=== PATIENT | female | born 1960 | race Caucasian/White ===

== ENCOUNTER 2021-04-08 09:39 | Inpatient (IN) | payer OTHER ==
[~2021-04-08] VITALS: Ht 162.6 cm; Wt 82.7 kg
[~2021-04-08 09:39] MED LIST: MEPE50 PO
[2021-04-08 10:42] LABS: BASOPHILS ABSOLUTE AUTO 0.01 K/mm3 (0.00-0.23); BASOPHILS PERCENT AUTO 0 % (0-2); EOSINOPHILS PERCENT AUTO 0 % (0-6); Hematocrit 40.8 % (33.0-51.0); Hemoglobin 13.2 g/dL (11.5-16.0); IMMATURE GRAN ABSOLUTE AUTO 0.04 K/mm3 (0.00-0.10); IMMATURE GRAN PERCENT AUTO 1 % (0-1); LYMPHOCYTES ABSOLUTE AUTO 0.38 K/mm3 (0.84-5.20); LYMPHOCYTES PERCENT AUTO 5 % (21-46); MONOCYTES ABSOLUTE AUTO 0.47 K/mm3 (0.16-1.47); MONOCYTES PERCENT AUTO 6 % (4-13); Mean Corpuscular HGB 28.9 pg (26.0-34.0); Mean Corpuscular HGB Conc 32.4 g/dL (31.5-36.5); Mean Corpuscular Volume 90 fL (80-100); Mean Platelet Volume 9.6 fL (9.1-12.4); NEUTROPHILS ABSOLUTE AUTO 7.29 K/mm3 (1.96-9.15); NEUTROPHILS PERCENT AUTO 89 % (41-73); Platelet Count 224 K/mm3 (150-400); RDW Coefficient Variation 13.7 % (11.7-14.2); Red Blood Cell Count 4.56 M/mm3 (3.80-5.20); White Blood Cell Count 8.19 K/mm3 (4.00-11.30)
[2021-04-08] MEDS ORDERED: PEPCID40 MG PO (10:45)
[2021-04-08] MEDS ORDERED: HYDROCODONE CO120 ML (10:46)
[2021-04-08] MEDS ORDERED: BUSPIRONE HCL10 M4 PO (10:46)
[2021-04-08] MEDS ORDERED: ALBU3IS (10:46)
[2021-04-08] MEDS ORDERED: CYCL10 (10:46)
[2021-04-08] MEDS ORDERED: DICL75ER (10:46)
[2021-04-08] MEDS ORDERED: DIAZEPAM5 M2 (10:47)
[2021-04-08] MEDS ORDERED: OXYC10TA19 (10:47)
[2021-04-08] MEDS ORDERED: ALBU2.5V5 NEB (12:04)
[2021-04-08] MEDS ORDERED: CYCLOBENZAPRINE5 MG PO (12:05)
[2021-04-08] MEDS ORDERED: TRAZ100 PO (12:05)
[2021-04-08] MEDS ORDERED: OXYC10TA19 PO (12:06)
[2021-04-08] MEDS ORDERED: [UNRECOGNIZED DRUG - OTHER] (16:07)
--- NOTE | 2021-04-08 18:43 | NUR ---
SHIFT SUMMARY PATIENT ARRIVED FROM ED. PATIENT IS ALERT AND ORIENTED. PATIENT IS IN BED ON 15 LITERS NON REBREATHER. PATIENT IS VERY ANXIOUS AND DESATTED GOING TO THE BESIDED COMMODE. WHEN PATIENT'S SATS RECOVER SHE WILL BE GETTING A CT SCAN.
[2021-04-08 21:43] LABS: Source, Urine Catheter
[2021-04-08 21:45] LABS: Bilirubin, Urine Neg (Neg); Blood, Urine 3+ (Neg); Glucose Qualitative, Urine Neg (Neg); Ketones, Urine 1+ (Neg); Leukocyte Esterase, Urine Neg (Neg); Nitrite, Urine Neg (Neg); Protein, Urine 3+ (Neg); Urobilinogen, Urine NORM (Normal)
[2021-04-08 22:07] LABS: Appearance, Urine Clear (Clear); Color, Urine Yellow (P-Yellow)
[2021-04-08 22:08] LABS: Amorphous Light (0-Heavy); Bacteria Mod /hpf; Mucus Light (0-Heavy); Squamous Epithelial Cells Few /hpf (Few)
[2021-04-09 06:06] LABS: BASOPHILS ABSOLUTE AUTO 0.01 K/mm3 (0.00-0.23); BASOPHILS PERCENT AUTO 0 % (0-2); EOSINOPHILS PERCENT AUTO 0 % (0-6); Hemoglobin 12.4 g/dL (11.5-16.0); IMMATURE GRAN ABSOLUTE AUTO 0.11 K/mm3 (0.00-0.10); IMMATURE GRAN PERCENT AUTO 2 % (0-1); LYMPHOCYTES ABSOLUTE AUTO 0.66 K/mm3 (0.84-5.20); LYMPHOCYTES PERCENT AUTO 10 % (21-46); MONOCYTES ABSOLUTE AUTO 0.44 K/mm3 (0.16-1.47); MONOCYTES PERCENT AUTO 6 % (4-13); Mean Corpuscular HGB 29.2 pg (26.0-34.0); Mean Corpuscular HGB Conc 33.5 g/dL (31.5-36.5); Mean Corpuscular Volume 87 fL (80-100); Mean Platelet Volume 9.9 fL (9.1-12.4); NEUTROPHILS ABSOLUTE AUTO 5.63 K/mm3 (1.96-9.15); NEUTROPHILS PERCENT AUTO 82 % (41-73); Platelet Count 219 K/mm3 (150-400); RDW Coefficient Variation 13.6 % (11.7-14.2); RDW Standard Deviation 43.5 fL (35.1-46.3); Red Blood Cell Count 4.24 M/mm3 (3.80-5.20); White Blood Cell Count 6.85 K/mm3 (4.00-11.30)
[2021-04-09 06:24] LABS: Anion Gap 6 mmol/L (6-16); Blood Urea Nitrogen 15 mg/dL (8-24); Bun/Creatinine Ratio 23.7 (12.0-20.0); CO2, Blood 27 mmol/L (21-32); Calcium, Blood 6.8 mg/dL (8.5-10.1); Chloride, Blood 111 mmol/L (98-108); Creatinine, Blood 0.63 mg/dL (0.40-1.00); Glomerular Filtration Rate >60 (60-); Glucose, Blood 110 mg/dL (70-99); Sodium, Blood 144 mmol/L (136-145)
--- NOTE | 2021-04-09 16:45 | NUR ---
TRANSFER NOTE: PT WITH INCREASED O2 NEEDS, AND ANXIETY T/O DAY. HOME STEREO EQUIPMENT INSTALLER AND RT ASSISTING WITH CARE. INCREASED FROM 15L NRB AND 9L OXIMIXER TO ARIVOW AT 60L/89%FIO2 WITH NRB AT 15L. PT CONTINUED TO DESAT INTO THE LOW 80'S FREQUENTLY AND 70'S WITH ANY ACTIVITY AND INCREASING ANXIETY. MD CONSULTED AND NEW ORDERS RECIEVED. PT MEDICATED WITH FENTANYL FOR PAIN AND ATIVAN FOR ANXIETY WITH GOOD RESULTS. PT UNABLE TO TOLERATED EATING OR TALKING WITHOUT DESATS. DISCUSSED WITH RT AND MD AND NEW ORDERS REVIEVED TO TRANSFER PT TO PCU. REPORT CALLED TO KATHY LIMA AND PT TRANSFERED TO PCU 232 ACCOMPANNIED BY HOME STEREO EQUIPMENT INSTALLER, RT AND IMMIGRATION PATROL INSPECTOR.
--- NOTE | 2021-04-09 17:16 | NUR ---
Pt arrived from Medical floor, wearing 100% non rebreather, switched over to cpap at 12, fio2 50%. spo2 91 %, RR 33-43. Pt is anxious.
--- NOTE | 2021-04-09 18:46 | NUR ---
SHE WAS TRANSFERRED HERE FROM MEDICAL FLOOR. PLACED ON CPAP AT 60% NOW. IS ANX. BUT DOING WELL WITH TALKING HER DOWN. SHE TRYING TO FOCUS ON DEEP, SLOW BREATHING . TALKED TO . HE STATES HE IS AT HOME ON 12 L O2 NOW. PT IS A/O. NO NEW CONCERNS NOTED. SHE ASKED FOR WATER, GAVE, SATES DID NOT DROP WITH 1/2 MIN OFF CPAP. BED IN LOW POSITIOIN, CALL LITE IN REACH, CALLS APPROP.
--- NOTE | 2021-04-10 04:34 | NUR ---
PT IS ANXIOUS AT THE START OF SHIFT PT YELLED OUT AND PULLED OFF HER CPAP. PT KICKED, SCREAMED AND PUSHED THIS NURSE AWAY WHEN SHE TRIED TO PLACE THE CPAP BACK ON. CHARGE NURSE CAME TO HELP PT AND PT WAS ABLE TO CALM DOWN, WAS GIVEN ATIVAN TO HELP. LATER THIS NIGHT AROUND 0000 PT WAS FOUND SCREAMING IN HER ROOM AND WAS ATTEMPTING TO WALK TO THE BATHROOM, LEAVING HER CATHETER AND CPAP BEHIND. PT COULD NOT BE REDIRECTED OR REASONED WITH. IT TOOK 5 STAFF MEMBERS TO GET PT BACK INTO THE BED. PT WAS GIVEN ANOTHER DOSE OF ATIVAN WITH LITTLE EFFECT. PT WAS OFFERED THE BED BULLOCK MULTIPLE TIMES BEUCASE SHE WOULD SAY "I NEED TO POOP" BUT REFUSED TO USE THE BEDPAN, SCREAMING "LET ME GO". PT EVENTUALLY CALMED DOWN BUT WAS PUT ON BOTH TWO POINT RESTRAINTS AND A SAGE VEST. PT STILL CANNOT ANSWER ORIENTATION QUESTIONS OR FOLLOW COMMANDS. AROUND 0300 PT AGAIN BECAME VERY AGITATED AND WAS SOMEHOW ABLE TO SCOOT DOWN IN THE BED TO REACH HER HANDS TO GET OFF THE CPAP. WHEN ATTEMPTING TO PUT THE CPAP BACK ON, EDUCATING THE PT THAT HE SATURATIONS WERE IN THE 30S, PT STILL REFUSED AND STARTED TO SCRATCH AND KICK THIS NURSE. CHARGE NURSE CALLED AND 5 PEOPLE AGAIN CAME TO HELP HOLD PT DOWN WHILE TRYING TO GET THE CPAP BACK ON. CHARGE NURSE NOTIED DR MANCINI OF THE SITUATION AND SAID TO GET A DOSE OF ZYPREXA. AFTER 45 MIN OF STRUGGLING, PT BECAME MORE RESPONSIVE TO HELP AND HER BED WAS CHANGED, PT WAS PULLED UP IN BED AND AGAIN, ATTEMPTED TO OFFER THE BEDPAN WITHOUT SUCCESS. PT WAS PUT IN 4 POINT RESTRAINTS FOR HER SAFETY. CALL LIGHT IN REACH, BED IN LOWEST POSTION, BED ALARM ON AND CAMERA MONITORING ON.
--- NOTE | 2021-04-10 05:42 | NUR ---
SHIFT SUMMARY ASSUMED CARE OF PT AT 1900. PT IS ALERT BUT NOT ORIENTED, SEE PREVIOUS NOTE. HEART SOUNDS REGULAR, LUNG SOUNDS ARE DIMINISHED WITH CRACKLES ALL OVER. PT IS ON CPAP @ 50%FIO2. PT WILL DESAT INTO THE 30% WHEN SHE TAKES OFF HER MASK. PT HAD AN INCONTIENT SMEAR OF DARK STOOL. PT HAS A CLARK DRAINING WITH GRAVITY. PT PULLED AT CATHETER TWICE, ONCE TRYING TO GET OUT OF BED, A SECOND TIME WHEN WHEN SHE TRIED TO TAKE OFF HER CPAP A THIRD TIME. PT WAS NOT NOT ABLE TO TOLERATE ORAL MEDICATIONS. CALL LIGHT IN REACH, BED IN LOWEST POSTION, BED ALARM ON, CAMERA MONITORING.
--- NOTE | 2021-04-10 09:33 | NUR ---
PHYSICIAN UPDATED UPDATED ON PT'S INCREASE IN AGGITATION AND RR.SEE EMAR AND EHR
--- NOTE | 2021-04-10 13:52 | NUR ---
UPDATE PHYSICIAN AWARE PT IS HAVING LIQUID DARK STOOLS. TOLD TO CONTINUE TO MONITOR AT THIS TIME. PHYSICIAN NOTIFIED THAT PT UNABLE TO GO TO CT AT THIS TIME D/T OXYGEN REQUIRMENTS ON CPAP. IF ABLE TO TITRATE PT DOWN ON FIO2 WILL BE ABLE TO TRANSFER PT TO CT.
--- NOTE | 2021-04-10 16:03 | NUR ---
Update 04/10/21: Per chart notes, pt. agitated overnight. Restraints in place. CT canceled at this time. I believe that patient's has been updated by Dr. Colón, I will check in with him to be sure. Pt. seems likely to remain admitted over the weekend. Plan to continue to follow care and provide discharge planning/care coordination as needed. Will also update her Mike as indicated based on patient's hospital course.
--- NOTE | 2021-04-10 17:10 | NUR ---
Called patient's Mike to provide updates. Pt. was able to go in for CT. with portable equipment. Pt. no longer in restraints. Per RT they have attempted to transition pt. to NC so that she can eat. Pt. did not tolerate NC and was switched back to mask. Pt. appeared to be calm and resting comfortably in room on mask. Provided additional updates to . Requested that nursing staff provide update to patient's in the am and if any changes occur in patient's condition.
--- NOTE | 2021-04-10 18:12 | NUR ---
SHIFT SUMMARY PT ALERT TO SELF, LOCATION AND EVENT. PT VERY ANXIOUS AT TIMES AND PAINFUL. MEDICATED PER EMAR. PT HAS HIGH RR T/O SHIFT. PHYSICIAN AWARE. MEDICATED FOR ANXIETY. PT ON CPAP AT SETTINGS OF 12 AND 65% FIO2. HR STABLE. BP STABLE. PT REPORTS PAIN IN BACK. MEDICATED PER EMAR. SAGE VEST AND BILAT SOFT WRIST RESTRAINTS ORDERED D/T AGGITATION AND PULLING AT LINES. PT CALMED T/O SHIFT. FAMILY REQUESTS TO BE NOTIFIED IN AM OF PT STATUS. WILL INFORM NIGHTSHIFT RN. PT TURNED Q 2 HRS. ORAL CARE PROVIDED AND PO INTAKE OFFERED. PT REFUSING PO INTAKE AND PO MEDS. PHYSICIAN NOTIFIED. ORDERS FOR D5 1/2 NS TO RUN AT 75 ML/HR. OXYGEN SATURATION MAINTAINED ABOVE 92%. PT TRIALED AIRVO, UNABLE TO TOLERATE AT THIS TIME D/T ANXIETY. PT TRANSPORTED TO [place] DURING SHIFT WITH THIS RN, DIRECT SUPPORT SPECIALIST AND RT. NO CP OR PRESSURE REPORTED. WILL CONT TO MONITOR UNTIL REPORT GIVEN TO NIGHTSHIFT RN.
--- NOTE | 2021-04-11 07:06 | NUR ---
SHIFT SUMMARY PATIENT WAS PUT BACK ON THE RESTRIANT. SHE WAS ALSO TRYING TO WIGGLE OUT OF BED DURING THE SHIFT. CAMERA MONITORING IS STILL ON AND CALLED THE AIDE AND RN TO CHECK ON THE PATIENT. ATIVAN WAS GIVEN A COUPLE TIMES DURING THE SHIFT SEE EMAR. MULTIPLE REPOSITIONING FOR HELP THE PATIENT RELAX. PATIENT UNABLE TO TOLERATE THE BIPAP MACHING OFF TO DRINK WATER OR TAKE HER MEDS. WILL CONTINUE TO MONITOR. VITALS WERE STABLE. CALL LIGHT IN REACH AND BED IN LOW POSITION. FREQUENT CHECKS WHILE PATIENT IS ON RESTRIENTS.
--- NOTE | 2021-04-11 12:26 | NUR ---
Pt has been sleeping since administration of pain medication. SpO2 on 55% FiO2 Cpap 12 has been holding well at 92-94% while asleep, RR decreased somewhat still tachypneic over 20 /min. Dr. Colón was rounding at 1215, updated on pt's condition and episodes of anxiety which have prevented a good attempt on the AirVo instead of CPAP.
--- NOTE | 2021-04-11 12:53 | NUR ---
Pt awakened for assessment. Lung sounds without crackles and wheezes anteriorly. The pt has been wanting to have the cpap mask off. Explained to pt that we could attempt again at this time, but that if she becomes panicked, crying, panting, etc. it will drop her oxygen level and I would have to put the cpap mask back on again. She said that she thought she could handle the flow of the AirVo nasal cannula without panicking. CPAP removed, placed on AirVo 65 L and 66% FiO2. Spo2 90-91% at this time. She is lying in bed, RR 28/minute, calm and not anxious at this time.
--- NOTE | 2021-04-11 15:53 | NUR ---
Pt tolerated about 45 minute break from the CPAP mask. Switched back to CPAP from the AirVo when hypoxia was persistent.
--- NOTE | 2021-04-11 18:43 | NUR ---
1800 Pt has been sleeping all done, doesn't change her positions except when i come into the room every 2 hours to wake her up and encourage her to reposition. At this time, she was assisted to get into the prone position, which she is tolerating very well; spo2 96% still on the cpap 12 cm H2O and FiO2 55%.
--- NOTE | 2021-04-12 05:06 | NUR ---
SHIFT SUMMARY PATIENT IS RESTING COMFORTABLE IN BED. SHE WAS AGITATED AT THE START OF SHIFT ATIVAN WAS GIVEN TWICE DURING THE SHIFT. THE PATIENT WAS ABLE TO TAKE HER PO PILL. PATIENT IS CURRENTLY ON RESTRAINTS DUE TO HER TRYING TO GET OUT OF BED AND ALSO TRYING TO PULL HER MASK OFF. RN WAS ABLE TO REORIENT AND EDUCATE PATIENT ABOUT KEEPING HER MASK ON. CALL LIGHT IN REACH FREQUENT CHECKS ON PATIENT. VITALS HAVE BEEN STABLE EXCEPT FREQUENT HR DROPS TO THE 50S WHEN SLEEPING. PATIENT COMPLAINED OF PAIN SEE EMAR. WILL CONTINUE TO MONITOR.
[2021-04-12 05:10] LABS: BASOPHILS ABSOLUTE AUTO 0.02 K/mm3 (0.00-0.23); BASOPHILS PERCENT AUTO 0 % (0-2); EOSINOPHILS PERCENT AUTO 0 % (0-6); Hematocrit 33.6 % (33.0-51.0); Hemoglobin 11.3 g/dL (11.5-16.0); Mean Corpuscular HGB 29.3 pg (26.0-34.0); Mean Corpuscular HGB Conc 33.6 g/dL (31.5-36.5); Mean Corpuscular Volume 87 fL (80-100); Platelet Count 251 K/mm3 (150-400); RDW Coefficient Variation 12.9 % (11.7-14.2); RDW Standard Deviation 40.7 fL (35.1-46.3); Red Blood Cell Count 3.86 M/mm3 (3.80-5.20); White Blood Cell Count 5.64 K/mm3 (4.00-11.30)
[2021-04-12 05:23] LABS: IMMATURE GRAN ABSOLUTE AUTO 0.12 K/mm3 (0.00-0.10); IMMATURE GRAN PERCENT AUTO 2 % (0-1); LYMPHOCYTES ABSOLUTE AUTO 0.62 K/mm3 (0.84-5.20); LYMPHOCYTES PERCENT AUTO 11 % (21-46); MONOCYTES ABSOLUTE AUTO 0.34 K/mm3 (0.16-1.47); MONOCYTES PERCENT AUTO 6 % (4-13); NEUTROPHILS ABSOLUTE AUTO 4.54 K/mm3 (1.96-9.15); NEUTROPHILS PERCENT AUTO 81 % (41-73)
[2021-04-12 05:36] LABS: Alanine Aminotransfer (ALT/SGP 95 U/L (12-78); Albumin/Globulin Ratio 0.6 (0.8-1.8); Alk Phos 68 U/L (50-136); Anion Gap 3 mmol/L (6-16); Aspartate Aminotrans (AST/SGOT 37 U/L (12-37); Bilirubin, Total 0.4 mg/dL (0.1-1.0); Blood Urea Nitrogen 9 mg/dL (8-24); CO2, Blood 33 mmol/L (21-32); Calcium, Blood 6.7 mg/dL (8.5-10.1); Chloride, Blood 102 mmol/L (98-108); Globulin, Blood 3.1 g/dL (2.2-4.0); Glomerular Filtration Rate >60 (60-); Glucose, Blood 189 mg/dL (70-99); Potassium, Blood 3.3 mmol/L (3.5-5.5); Sodium, Blood 138 mmol/L (136-145); Total Protein, Blood 5.1 g/dL (6.4-8.2)
[2021-04-12 06:18] LABS: BASOPHILS PERCENT MAN 0 % (0-2); EOSINOPHILS PERCENT MAN 0 % (0-6); LYMPHOCYTES % ATYPICAL MANUAL 1 % (0-0); LYMPHOCYTES ABSOLUTE MAN 0.16 K/mm3 (0.84-5.20); LYMPHOCYTES PERCENT MAN 2 % (21-46); MONOCYTES ABSOLUTE MAN 0.11 K/mm3 (0.16-1.47); MONOCYTES PERCENT MAN 2 % (4-13); MYELOCYTE ABSOLUTE MAN 0.11 K/mm3 (0.00-0.00); MYELOCYTE PERCENT MAN 2 % (0-0); NEUTROPHILS ABSOLUTE MAN 5.24 K/mm3 (1.96-9.15); SEG NEUTROPHILS PERCENT MAN 93 % (41-73); TOTAL CELLS COUNTED 100
--- NOTE | 2021-04-12 10:27 | NUR ---
Sat pt up on side of bed, while wearing the cpap at 60% fio2. spo2 improved to 96% while sitting on side of bed. Switched to Air Vo during administration of water, which the pt was able to accomplish without coughing or difficulty. then took oral meds also without difficulty. While on AirVo the pt started to pant breathing, and even with multiple attempts to redirect her and have her breathe in through her nose with the airvo on, her spo2 dropped to 85% and she was placed back on cpap mask. She resisted at first, trying to pull the mask off. I asked her to please not take it off, because if she does she will . She stopped and has not attempted to remove it. She was repositioned back in bed, which she said she wanted to lie back down, wearing cpap. Verified with remote monitoring that her mask is visible to them, in case she attempts to pull if off again when staff is not present in the room. She appears comfortable at this time.
--- NOTE | 2021-04-12 14:35 | NUR ---
Pt is being repositioned every 2-3 hours. She simply sleeps in one position until awoken by staff. She is able to reposition with only minimal assistance. When awoken, she barely keeps her eyes open, whimpers, occasionally attempts to remove the mask. When asked if she is having pain she shakes her head "no". Following directions. spo2 90-93% on the CPAP. Given sips of water during a brief (20 second approx) break from the CPAP.
--- NOTE | 2021-04-13 05:55 | NUR ---
SHIFT SUMMARY PATIENTT IS RESTING COMFORTABLY IN BED. PATIENT IS CURRENTLY ON AIRVO 60L ON 90% FIO2. SHE IS MORE REDIRECTABLE DURING THE SHIFT. SHE DID NOT NEED RESTRAINT AT ALL DURING THE NIGHT. PATIENT IS CALMER TONIGHT. VITALS WERE STABLE DURING THE SHIFT. SHE SAT ON THE SIDE OF THE BED FOR A COUPLE MINUTES AND SHE WAS ABLE TO TAKE HER ORAL MEDICATIONS. CALL LIGHT IN REACH. WILL CONTINUE TO MONITOR.
[2021-04-13 06:08] LABS: BASOPHILS ABSOLUTE AUTO 0.01 K/mm3 (0.00-0.23); BASOPHILS PERCENT AUTO 0 % (0-2); EOSINOPHILS PERCENT AUTO 0 % (0-6); Hematocrit 34.3 % (33.0-51.0); Hemoglobin 11.8 g/dL (11.5-16.0); IMMATURE GRAN ABSOLUTE AUTO 0.13 K/mm3 (0.00-0.10); IMMATURE GRAN PERCENT AUTO 2 % (0-1); LYMPHOCYTES ABSOLUTE AUTO 0.48 K/mm3 (0.84-5.20); LYMPHOCYTES PERCENT AUTO 7 % (21-46); MONOCYTES ABSOLUTE AUTO 0.26 K/mm3 (0.16-1.47); MONOCYTES PERCENT AUTO 4 % (4-13); Mean Corpuscular HGB 29.3 pg (26.0-34.0); Mean Corpuscular HGB Conc 34.4 g/dL (31.5-36.5); Mean Corpuscular Volume 85 fL (80-100); Mean Platelet Volume 9.8 fL (9.1-12.4); NEUTROPHILS ABSOLUTE AUTO 6.31 K/mm3 (1.96-9.15); NEUTROPHILS PERCENT AUTO 88 % (41-73); Platelet Count 281 K/mm3 (150-400); RDW Coefficient Variation 12.7 % (11.7-14.2); Red Blood Cell Count 4.03 M/mm3 (3.80-5.20); White Blood Cell Count 7.19 K/mm3 (4.00-11.30)
[2021-04-13 06:27] LABS: Anion Gap 3 mmol/L (6-16); Blood Urea Nitrogen 8 mg/dL (8-24); Bun/Creatinine Ratio 14.1 (12.0-20.0); CO2, Blood 32 mmol/L (21-32); Calcium, Blood 7.3 mg/dL (8.5-10.1); Chloride, Blood 104 mmol/L (98-108); Creatinine, Blood 0.57 mg/dL (0.40-1.00); Glomerular Filtration Rate >60 (60-); Glucose, Blood 151 mg/dL (70-99); Magnesium, Blood 1.8 mg/dL (1.6-2.4); Potassium, Blood 3.5 mmol/L (3.5-5.5); Sodium, Blood 139 mmol/L (136-145)
--- NOTE | 2021-04-13 17:17 | NUR ---
PT SUMMARY: PT ON AIRVO ALL SHIFT 50L 70% FIO2 AT THIS TIME PT IS CURRENTLY IN PRONE POSITION, DESATS QUICK TO LOW 70'S WITH MINIMAL EXERTION TAKES TIME TO RECOVER WHEN TURNED UP TO 100% FIO2. PT IS ALERT AND ORIENTED GETS FORGETFUL AT TIMES. VITALS HRR SR HAD 5-10SEC EPISODES OF SVT, BP SYSTOLIC 140'S, RR INCREASES WHEN ANXIOUS, AFEBRILE. BED BATH AND ORAL CARE PROVIDED, REPOSITIONED Q2HRS. PT HAD POOR APPETITE HAD LESS THAN 20% OF HER MEALS TODAY D5 1/2NS RUNNING AT 75MLS/HR. NO OTHER ISSUES ENCOUNTERED, BED ALARM ON FOR SAFETY NO ATTEMPTS OF TRYING TO GET OUT OF BED, CALL LIGHTS WITHIN REACH WILL REPORT TO ONCOMING SHIFT
--- NOTE | 2021-04-13 23:00 | NUR ---
AT 2230 THE PATIENT THREW UP WHILE ON THE BIPAP MACHINE. PATIENT WAS ABLE TO TAKE OF THE MASK WHEN SHE VOMITTED. WE TRIED TO PRONE THE PATIENT ON HER RIGHT SIDE BUT SHE LAYED ON HER RIGHT SIDE AND WAS UNABLE TO FULLY PRONE HER AND HER SATURATIONS WENT UP WHILE SHE WAS ON HER SIDE. WILL CONTINUE TO MONITOR. STAYING OF THE BIPAP FOR NOW
[2021-04-14 03:41] LABS: BASOPHILS ABSOLUTE AUTO 0.01 K/mm3 (0.00-0.23); BASOPHILS PERCENT AUTO 0 % (0-2); EOSINOPHILS PERCENT AUTO 0 % (0-6); Hematocrit 32.1 % (33.0-51.0); IMMATURE GRAN ABSOLUTE AUTO 0.17 K/mm3 (0.00-0.10); IMMATURE GRAN PERCENT AUTO 2 % (0-1); LYMPHOCYTES ABSOLUTE AUTO 0.24 K/mm3 (0.84-5.20); LYMPHOCYTES PERCENT AUTO 3 % (21-46); MONOCYTES ABSOLUTE AUTO 0.24 K/mm3 (0.16-1.47); MONOCYTES PERCENT AUTO 3 % (4-13); Mean Corpuscular HGB Conc 34.3 g/dL (31.5-36.5); Mean Corpuscular Volume 85 fL (80-100); Mean Platelet Volume 9.7 fL (9.1-12.4); NEUTROPHILS ABSOLUTE AUTO 8.01 K/mm3 (1.96-9.15); NEUTROPHILS PERCENT AUTO 92 % (41-73); Platelet Count 269 K/mm3 (150-400); RDW Coefficient Variation 12.8 % (11.7-14.2); RDW Standard Deviation 39.4 fL (35.1-46.3); Red Blood Cell Count 3.79 M/mm3 (3.80-5.20); White Blood Cell Count 8.67 K/mm3 (4.00-11.30)
[2021-04-14 03:58] LABS: Anion Gap 3 mmol/L (6-16); Blood Urea Nitrogen 6 mg/dL (8-24); Bun/Creatinine Ratio 10.5 (12.0-20.0); CO2, Blood 33 mmol/L (21-32); Chloride, Blood 103 mmol/L (98-108); Creatinine, Blood 0.57 mg/dL (0.40-1.00); Glomerular Filtration Rate >60 (60-); Glucose, Blood 157 mg/dL (70-99); Magnesium, Blood 2.3 mg/dL (1.6-2.4); Phosphorus, Blood 1.7 mg/dL (2.5-4.9); Sodium, Blood 139 mmol/L (136-145)
--- NOTE | 2021-04-14 05:45 | NUR ---
AIRVO SETTING ARE 60L ON 90% FIO2 SAQTURATING AT 94% WITHOUT THE NONREBREATHER.
--- NOTE | 2021-04-14 06:00 | NUR ---
SHIFT SUMMARY. THE PATIENT IS RESTING COMFORTABLE IN BED. SHE IS CURRENTLY LAYING ON HER RIGHT SIDE. SHE PRONED FOR ABOUT AN HOURS THEN REAJUSTED TO HER RIGHT SIDE. SATURATIONS ARE STILL MAINTINING ABOVE 9O% AT 93% ON THE AIRVO 60L ON 90% WITHOUT THE NONREBREATHER ON. THE PATIENT HAS BEEN OFF THE BIPAP DUE TO HER THROWING UP AT 2240 LAST NIGHT. ONE DOES OF ATIVAN WAS GIVEN TO HELP CALM HER AFTER SHE THREW UP. CALL LIGHT IS IN REACH. PATIENT IS IN [place] WITH HER BED ALARM ON. HER SATURATIONS GO DOWN WHEN WE TRY TO MOVE HER BUT SHE HAS TOLERATED LAYING ON HER SIDE AND IN PRONE POSITION. WILL CONTINUE TO MONITOR. VITALS HAVE BEEN STABLE OTHERWISE HER SATURATIONS WHICH HAVE IMPORVED.
--- NOTE | 2021-04-14 14:49 | NUR ---
pt sitting up eating lunch, 60l airvo at this time. pt tolerating well. awoke confused and removing cpap. stated "i need to go to my appointment with the doctor" reoriented well to location at hospital. currently 90% with airvo on.
--- NOTE | 2021-04-14 16:05 | NUR ---
SHIFT SUMMARY COVID 19 PT REPORTS FEELING BETTER TODAY. SHE REMAINS EXTREMELY TIRED AND DENIES WANTING TO EAT. AGREEABLE TO TRYING ENSURE WITH MEALS. SOB WITH REST AND WILL DESAT WITH SOME EXERTION. REMIANS SEMI PRONE ON HER LEFT SIDE. HIGH FLOW SET TO 60L AND 90% KEEPING AIRVO IN NOSE. CLARK PATENT AND DRAINING.
--- NOTE | 2021-04-14 17:05 | NUR ---
pt placed back on bipap with rt. pt tolerating well. still prone on left side. currently 93%
--- NOTE | 2021-04-15 05:00 | NUR ---
PT TRANSFER PT TRANSFERRED FROM [facility] TO PCU 8 ICU STATUS. PT IS ON BIPAP 16/12, BUR 8, FIO2 100%. PT SLEEPING UPON ARRIVAL. WHEN PT WAKES UP, SHE IS UNABLE TO FOLLOW COMMANDS. MAKES EYE CONTACT BUT DOES NOT SQUEEZE HANDS. AFTER A FEW MINUTES, PT BECOMES MORE ALERT. SHAKES HEAD YES/NO TO ANSWER QUESTIONS AND FOLLOWS COMMANDS. PT DENIES PAIN OR DISCOMFORT. LUNGS ARE CLEAR AND DIMINISHED IN BASES. BOWEL TONES HYPOACTIVE. RADIAL AND PEDAL PULSES STRONG. PT SINUS RHYTHM ON MONITOR, HR 40S-60S. SBP 140S. CLARK IN PLACE. PT RECEIVING D5W1/2NS AT 75MLS/HR. POWERGLIDE TO R ARM. TEMP 97.1. PT CALM AND DROWSY AT THIS TIME. PT ASKS FOR WARM BLANKETS WHICH ARE PROVIDED. PT GIVEN CALL LIGHT AND EXPLAINED HOW TO USE. PT IS ON CENTRAL MONITOR CAMERA.
[2021-04-15 05:05] LABS: Base Excess Venous 12.1 mmol/L; Bicarbonate Venous 34.7 mmol/L (24.0-30.0); PCO2 Venous 40.3 mmHg (38-42); PO2 Venous 56.3 mmHg (38-42); pH Blood Venous 7.54 (7.34-7.37)
[2021-04-15 05:15] LABS: BASOPHILS ABSOLUTE AUTO 0.02 K/mm3 (0.00-0.23); BASOPHILS PERCENT AUTO 0 % (0-2); EOSINOPHILS PERCENT AUTO 0 % (0-6); Hematocrit 33.5 % (33.0-51.0); Hemoglobin 11.4 g/dL (11.5-16.0); IMMATURE GRAN ABSOLUTE AUTO 0.19 K/mm3 (0.00-0.10); IMMATURE GRAN PERCENT AUTO 2 % (0-1); LYMPHOCYTES ABSOLUTE AUTO 0.31 K/mm3 (0.84-5.20); LYMPHOCYTES PERCENT AUTO 4 % (21-46); MONOCYTES ABSOLUTE AUTO 0.15 K/mm3 (0.16-1.47); MONOCYTES PERCENT AUTO 2 % (4-13); Mean Corpuscular HGB 28.9 pg (26.0-34.0); Mean Corpuscular Volume 85 fL (80-100); Mean Platelet Volume 10.2 fL (9.1-12.4); NEUTROPHILS ABSOLUTE AUTO 7.73 K/mm3 (1.96-9.15); NEUTROPHILS PERCENT AUTO 92 % (41-73); Platelet Count 241 K/mm3 (150-400); RDW Coefficient Variation 12.7 % (11.7-14.2); RDW Standard Deviation 39.1 fL (35.1-46.3); Red Blood Cell Count 3.94 M/mm3 (3.80-5.20)
[2021-04-15 05:36] LABS: Anion Gap 3 mmol/L (6-16); Blood Urea Nitrogen 7 mg/dL (8-24); Bun/Creatinine Ratio 12.6 (12.0-20.0); CO2, Blood 32 mmol/L (21-32); Calcium, Blood 7.1 mg/dL (8.5-10.1); Chloride, Blood 105 mmol/L (98-108); Creatinine, Blood 0.55 mg/dL (0.40-1.00); Glomerular Filtration Rate >60 (60-); Glucose, Blood 180 mg/dL (70-99); Phosphorus, Blood 2.6 mg/dL (2.5-4.9); Potassium, Blood 3.3 mmol/L (3.5-5.5); Sodium, Blood 140 mmol/L (136-145)
--- NOTE | 2021-04-15 07:38 | NUR ---
SHIFT SUMMARY PT. LETHARGIC UPON ARRIVAL. PT. AOUND MED. PASS TIME DID WAKE UP WAS COMMUNICATIVE WITH STAFF, AT THE TIME ALERT AND ORIENTATED. ON CPAP AT 75% FIO2 AND 02 AT THE TIME ABOVE 89-92%. WITH ANY MOVEMENT OR REPOSITIONING PT. WOULD DESAT. RESPIRATORY THERAPY HAD TO INCREASE FIO2 T/O THE NIGHT TILL SHE REACHED 100% FIO2 TO HELP MAINTAIN TO KEEP HER O2 ABOUT 90%. DR. DURAN WAS NOTIFIED AGREED TO TRANSFER HER TO ANOTHER ROOM IN CASE OF AN EMERGANCY. SHE WAS TRANSFERED TO ROOM 8, IN CASE UPPER HIGHER CARE WAS NEEDED. PT. DOES HAVE A CLARK IN PLACE. NOTED YELLOW URINE. PT. REMAINS ON TELE MONITOR FROM SR IN THE 70'S TO SB WHEN SLEEPING. PT. REPOSITINED Q2H BUT REFUSED PRONING. WOULD GET ANXIOUS AND DID GET X1 ATIVAN DURING SHIFT. PT. GOT TRANSFERED AND GAVE REPORT TO NURSE RECEIVING PT. IN ROOM 8.
--- NOTE | 2021-04-15 08:02 | NUR ---
[place] of Care Pt is resting in bed with eyes closed. She is on a full face mask with BIPAP at 100% Fio2, her o2 sat is at 92 %. She is bradycardic at 52 BPM. Her powerglide is patent. Her palomo is in place draining dark yellow urine. Her bed alarmn is set and she is on camera for safety as per report she was aggitated on shift production associate.
--- NOTE | 2021-04-15 11:44 | NUR ---
Update 04/15/21: Day 7 of hospitalization. Per chart review, confusion has improved over the last few days. Notes of patient being lethargic at times. Bradycardic. Notes that pt. desated with any movement overnight. Transferred to PCU8 on ICU status due to risk for need of critical care. Settings: BiPAP 15, FiO2 95%. SPO2 at 92%. Dr. Decker has been providing updates to patient's Mike. I have also provided him with my contact information for updates or questions. Plan to continue to follow patient's care and assist in care coordination as needed. Continue update family as indicated.
--- NOTE | 2021-04-15 16:08 | NUR ---
Shift Summary Pt is a/o to herself and situation at times but she has been confused and drowsy, sleeping throughout the day. When she is awake she is anxious and was medicated for that as ordered. She was trialed on the on the smaller partial face mask but reported that she prefers the full face mask. She is currently on the CPAP at 100% Fio2 with sats in the 90's. She has been sinus ron. IV fluids are infusing as ordered. She has been on bedrest today. She is able to make her needs known and has her call light in reach but does need reminders to use it. She is visble on camera and bed alarm is on for safety.
--- NOTE | 2021-04-16 06:38 | NUR ---
SHIFT SUMMARY PATIENT IS A PLESANTLY CONFUSED LADY WHO IS ORIENTED X2-3, FORGETFUL, DOESNT KNOW LIMITS, BUT IS COMPLIANT WITH CARE AND FOLLOWING MOST COMMANDS. GENERALIZED WEAKNESS NOTED. FUNES. VSS. ON CPAP 90% TO START AND ABLE TO WEAN DOWN TO 75 ON THIS. STILL DESATS WITH VERY LITTLE EXERTION OR ORAL INTAKE. TRIALED AIRVO MAX SETTINGS FOR MEDS BUT DID NOT TOLERATE THIS. SO ONLY GIVING THE IMPORTANT ORAL MEDS FOR NOW. PATIENT STATES SHE IS VERY HUNGRY BUT REMAINS NPO UNTIL O2 DEMANDS DOWN. NSR/SB ON THE MONITOR. Q2H TURNS IN PLACE AND PATIENT HELPS WITH THIS. CLARK PATENT DRAINING TO GRAVITY.NO ACUTE CONCERNS AT THIS TIME. WILL CONTINUE PLAN OF CARE UNTIL REPORT GIVEN TO DK LIMA.
--- NOTE | 2021-04-16 08:28 | NUR ---
[place] of Care Pt is sleeping in bed. She is still on CPAP with the full face mask with sats currently in the low 90's. She can not tolerate being off the mask even for nutrition or PO pills so when the Dr rounds we will discuss IV nutrition. Her IV fluids are still infusing as ordered. She has her call light and the bed alarm is on for safety.
[2021-04-16 09:10] LABS: BASOPHILS ABSOLUTE AUTO 0.02 K/mm3 (0.00-0.23); BASOPHILS PERCENT AUTO 0 % (0-2); EOSINOPHILS PERCENT AUTO 0 % (0-6); Hemoglobin 11.6 g/dL (11.5-16.0); IMMATURE GRAN ABSOLUTE AUTO 0.19 K/mm3 (0.00-0.10); IMMATURE GRAN PERCENT AUTO 2 % (0-1); LYMPHOCYTES ABSOLUTE AUTO 0.22 K/mm3 (0.84-5.20); LYMPHOCYTES PERCENT AUTO 3 % (21-46); MONOCYTES ABSOLUTE AUTO 0.19 K/mm3 (0.16-1.47); MONOCYTES PERCENT AUTO 2 % (4-13); Mean Corpuscular HGB 29.4 pg (26.0-34.0); Mean Corpuscular HGB Conc 34.1 g/dL (31.5-36.5); Mean Corpuscular Volume 86 fL (80-100); Mean Platelet Volume 10.1 fL (9.1-12.4); NEUTROPHILS ABSOLUTE AUTO 8.32 K/mm3 (1.96-9.15); NEUTROPHILS PERCENT AUTO 93 % (41-73); Platelet Count 255 K/mm3 (150-400); RDW Coefficient Variation 12.9 % (11.7-14.2); RDW Standard Deviation 40.6 fL (35.1-46.3); Red Blood Cell Count 3.95 M/mm3 (3.80-5.20); White Blood Cell Count 8.94 K/mm3 (4.00-11.30)
[2021-04-16 09:29] LABS: Alanine Aminotransfer (ALT/SGP 48 U/L (12-78); Albumin, Blood 1.8 g/dL (3.4-5.0); Albumin/Globulin Ratio 0.5 (0.8-1.8); Alk Phos 86 U/L (50-136); Anion Gap 3 mmol/L (6-16); Aspartate Aminotrans (AST/SGOT 23 U/L (12-37); Bilirubin, Total 0.2 mg/dL (0.1-1.0); Blood Urea Nitrogen 8 mg/dL (8-24); CO2, Blood 33 mmol/L (21-32); Calcium, Blood 7.1 mg/dL (8.5-10.1); Chloride, Blood 104 mmol/L (98-108); Creatinine, Blood 0.57 mg/dL (0.40-1.00); Globulin, Blood 3.7 g/dL (2.2-4.0); Glomerular Filtration Rate >60 (60-); Glucose, Blood 171 mg/dL (70-99); Potassium, Blood 3.5 mmol/L (3.5-5.5); Sodium, Blood 140 mmol/L (136-145); Total Protein, Blood 5.5 g/dL (6.4-8.2)
--- NOTE | 2021-04-16 11:25 | NUR ---
Update 04/16/21: Day 8 of hospitalization. Pt. continues to require high flow O2. Settings: CPAP 50 LPM. FiO2 70%. SPO2 at 95%. Per chart review, pt. unable to tolerate being off the mask. Several attempts have been made to adjust to NC for short periods of time. Pt. unable to take PO meds. IV nutrition may be required at this point. It is difficult to anticipate needs at time of discharge for pt. currently. Plan to continue to follow patient's care and assist in care coordination as needed. Continue to provide updates to patient's as indicated.
--- NOTE | 2021-04-16 16:41 | NUR ---
Shift Summary Pt is a/o x 2-3 but is confused and forgetful. She is fatigued and weak. She is dependent on the full face mask CPAP @ 70% and can maintain her sats in the low 90's as long as she keeps the mask on. She did become anxious this afternoon and pulled off the mask and quickly desaturated. The mask was replaced and she was given meds as ordered for her anxiety. She has been napping for the afternoon. A nutrition consult was called in and clinimix has been started. The PICC nurse will be here in the morning for the ordered PICC line. Her palomo is patent with yellow output. She has been turned and re-positioned. She is able to make her needs known and has her call light in reach.
[2021-04-17 04:17] LABS: BASOPHILS ABSOLUTE AUTO 0.01 K/mm3 (0.00-0.23); BASOPHILS PERCENT AUTO 0 % (0-2); EOSINOPHILS ABSOLUTE AUTO 0.01 K/mm3 (0.00-0.68); EOSINOPHILS PERCENT AUTO 0 % (0-6); Hematocrit 32.7 % (33.0-51.0); Hemoglobin 11.1 g/dL (11.5-16.0); IMMATURE GRAN ABSOLUTE AUTO 0.32 K/mm3 (0.00-0.10); IMMATURE GRAN PERCENT AUTO 3 % (0-1); LYMPHOCYTES PERCENT AUTO 3 % (21-46); MONOCYTES ABSOLUTE AUTO 0.27 K/mm3 (0.16-1.47); MONOCYTES PERCENT AUTO 2 % (4-13); Mean Corpuscular HGB 28.8 pg (26.0-34.0); Mean Corpuscular HGB Conc 33.9 g/dL (31.5-36.5); Mean Corpuscular Volume 85 fL (80-100); NEUTROPHILS ABSOLUTE AUTO 10.44 K/mm3 (1.96-9.15); NEUTROPHILS PERCENT AUTO 92 % (41-73); Platelet Count 218 K/mm3 (150-400); RDW Coefficient Variation 12.7 % (11.7-14.2); RDW Standard Deviation 38.6 fL (35.1-46.3); Red Blood Cell Count 3.85 M/mm3 (3.80-5.20); White Blood Cell Count 11.35 K/mm3 (4.00-11.30)
[2021-04-17 04:41] LABS: Anion Gap 4 mmol/L (6-16); Blood Urea Nitrogen 10 mg/dL (8-24); Bun/Creatinine Ratio 19.2 (12.0-20.0); CO2, Blood 30 mmol/L (21-32); Calcium, Blood 6.9 mg/dL (8.5-10.1); Chloride, Blood 103 mmol/L (98-108); Creatinine, Blood 0.52 mg/dL (0.40-1.00); Glomerular Filtration Rate >60 (60-); Glucose, Blood 136 mg/dL (70-99); Potassium, Blood 3.2 mmol/L (3.5-5.5); Sodium, Blood 137 mmol/L (136-145); Triglycerides 127 mg/dL (30-160)
--- NOTE | 2021-04-17 05:51 | NUR ---
SHIFT SUMMARY PATIENT IS A CONFUSED LADY WHO ORIENTED X2-3, FORGETFUL, FOLLOWING COMMANDS, WITH GENERALIZED WEAKNESS. FUNES AND QUITE RESTLESS IN BED. DOES NOT KNOW LIMITS AND TOOK THE CPAP FACE MASK OFF SEVERAL TIMES. WITH ONE OF THESE EPISODES PATIENT DESATED TO 40'S AND WERE CONSIDERING RESTRAINT USE BUT WAS ABLE TO REORIENT HER AND USE ATIVAN INSTEAD. HIGHLY ANXIOUS R/T MASK. ALSO HAVING CHRONIC PAIN ISSUES PATIENT BEEN UNABLE TO TAKE ORAL MEDS D/T O2 DEMANDS. GOT PRN FENTANYL Q4 ORDERED PRN TO HELP WITH THIS. BACK PAIN NOW AT TOLERABLE LEVEL. VSS. NSR IN THE 60'S ON THE MONITOR. ON CPAP 80% AT THIS TIME SATING MID 90'S. DESATTING WITH ANY EXERTION AND FORGOING ORAL MEDS UNTIL O2 DEMANDS DOWN TAKES PATIENT A WHILE TO RECOVER. NOT TOLERATING AIRVO FOR EVEN SHORT PERIODS. Q2H ORAL CARE AND TURNS. CLARK PATENT DRAINING TO GRAVITY. RIGHT UPPER ARM POWERGLIDE INFILTRATED WITH PPN INFUSING. QUITE SWOLLEN. LINE REMOVED, ARM ELEVATED, AND ICE APPLIED PER PHARMACY RECS. PPN ON HOLD UNTIL PICC PLACED LATER TODAY. WILL CONTINUE PLAN OF CARE UNTIL REPORT GIVEN TO DK LIMA.
--- NOTE | 2021-04-17 08:00 | NUR ---
ASSUMED CARE OF PATIENT. DROWSY BUT AWAKENS, FOLLOWS COMMONADS. TOLERATING CPAP WELL. POWER GLIDE INFILTRATED DURING NEGATIVE SPOTTER LAST NIGHT. AWAITING PICC LINE PLACEMENT SCHEDULED THIS AM TO GIVE POTASSIUM. IF DELAYED WILL START IN PREIPHERAL LINE AT REDUCED RATE.
--- NOTE | 2021-04-17 09:30 | NUR ---
patient desating with cpap at 90%- unable to maintain greater than 88%. medicated with ativan and assisted to prone. spo2 increased to mid 90's after proning and fio2 decreased back to 85%.
--- NOTE | 2021-04-17 10:30 | NUR ---
Pt unproned self, pulled off cpap mask. spo2 decreased to 60's, dr. cramer in to see patient. after cpap replaced, fio2 increased to 100 % to maintain spo2. rr decreased from high 50's back to 40's.
--- NOTE | 2021-04-17 12:07 | NUR ---
rt called this nurse and charge nurse into bedside to witness chain-rivera breahing pattern. rt changed over to bipap 21/05 with backup rate of 12. remains on 100 % Fio2. Rt reports he informed dr. franz. called and notified Dr. Najera.
--- NOTE | 2021-04-17 13:09 | NUR ---
PATIENT TRANSFERED TO ICU. REPORT TO PHAM GREENWOOD. CALLED EARLIER TO NOTIFY OF TRANSFER.
--- NOTE | 2021-04-17 13:09 | NUR ---
Assumed care of pt upon arrival to ICU 8 from PCU 8. Pt transferred due to worsening hypoxia. Neruo: Opens eyes spontaneously. Groaning. Nods head "yes" when asked if she is having pain. Answers questions. PERRL. Moves all extremities. Musculoskeletal: Mobility limited due to hypoxia, cords, lines. Bedfast at this time. Cardiac: ST per monitor, rate 105. BP stable. Distant heart sounds. No edema present. Capillary refill less than 3 seconds BUE and BLE. Respiratory: Pt arrived wearing V60 BiPAP with full-face mask. Settings 14/10, 100% FiO2, rate 14. Pt groaning. RR 60s. SpO2 91%. Lungs clear with diminished bases. No cough noted at this time. GI: No BM for several days. Pt NPO due to BiPAP mask dependence. Previously receiving Clinimix. On hold at this time due to limited IV access. Plan for patient to receive PICC line. : Parker catheter in place, draining kendall urine. Secured to bed, patent and draining. Skin: Scattered bruising to bilateral upper extremities. Otherwise unremarkable. Psychosocial: Anxious. Spouse updated by LODGE SALES ASSOCIATE, Kathleen. Plan: Pt medicated for pain. Precedex started at 0.4 mcg/kg/hr. Animal Husbandry Professor consulted. Pt placed in bilateral wrist restraints because pt reportedly self-removed NIV mask in PCU.
[2021-04-17 13:13] LABS: PCO2 Arterial 40.3 mmHg (35-45); PO2 Arterial 61.4 mmHg (80-100); pH Blood Arterial 7.51 (7.35-7.45)
--- NOTE | 2021-04-17 14:03 | NUR ---
04/17/21- per chart review with Dr. Najera, no plan for d/c at this time. -jg
--- NOTE | 2021-04-17 19:43 | NUR ---
SUMMARY Pt initially improved after medicating pt for pain and starting precedex. FiO2 successfully titrated down to 80% and remained there for several hours. PICC line placed by Debra LIMA and TPN started today. Pt to CT for r/o PE study related to increased D Dimer and worsening hypoxia. Pt SpO2 dropped when pt had to lay flat. Did not recover when exam was over. FiO2 increased to 90%. Pt stabilized for about 30 minutes but then required FiO2 increase to 100%. Pt's sats did not recover above 90%. Pressure increased to 18/[address] Reeves. Precedex stopped because pt somnolent. Neruo: Opens eyes to verbal stimulus. Moves all extremities. Musculoskeletal: Mobility limited due to hypoxia, cords, lines. Bedfast at this time. Cardiac: SB per monitor, rate 52. BP stable. Distant heart sounds. No edema present. Capillary refill less than 3 seconds BUE and BLE. Respiratory: Pt arrived wearing V60 BiPAP with full-face mask. Settings 18/14, 100% FiO2, rate 14. RR 20s. SpO2 93%. Lungs clear with diminished bases. No cough noted at this time. GI: No BM for several days. Pt NPO due to BiPAP mask dependence. PICC line placed and pt started on TPN today. : Parker catheter in place, draining kendall urine. Secured to bed, patent and draining. Skin: Scattered bruising to bilateral upper extremities. Otherwise unremarkable. Psychosocial: Somnolent. Spouse updated by TECHNICAL SUPPORT SPECIALISTKathleen LIMA.
--- NOTE | 2021-04-17 23:01 | NUR ---
DECISION TO INTUBATE DR AUGUSTINE, DR SANCHEZ, AND RT AT BEDSIDE FOR INTUBATION. PT MEDICATED WITH 100MCG PROPOFOL BY DR AUGUSTINE AND 50MG SUCCINYLCHOLINE. INTUBATION COMPLETE AT 2232. ET TUBE IS 8.0, 25CM AT THE TEETH. VENT SETTINGS 20/330/16/90% WITH SPO2 >95%.
[2021-04-18 00:58] LABS: PCO2 Arterial 53.1 mmHg (35-45); PO2 Arterial 81.7 mmHg (80-100); pH Blood Arterial 7.38 (7.35-7.45)
[2021-04-18 04:06] LABS: BASOPHILS ABSOLUTE AUTO 0.01 K/mm3 (0.00-0.23); BASOPHILS PERCENT AUTO 0 % (0-2); EOSINOPHILS PERCENT AUTO 0 % (0-6); Hematocrit 34.7 % (33.0-51.0); Hemoglobin 11.9 g/dL (11.5-16.0); IMMATURE GRAN ABSOLUTE AUTO 0.17 K/mm3 (0.00-0.10); IMMATURE GRAN PERCENT AUTO 2 % (0-1); LYMPHOCYTES PERCENT AUTO 2 % (21-46); MONOCYTES ABSOLUTE AUTO 0.19 K/mm3 (0.16-1.47); MONOCYTES PERCENT AUTO 2 % (4-13); Mean Corpuscular HGB 30.1 pg (26.0-34.0); Mean Corpuscular HGB Conc 34.3 g/dL (31.5-36.5); Mean Corpuscular Volume 88 fL (80-100); Mean Platelet Volume 10.3 fL (9.1-12.4); NEUTROPHILS ABSOLUTE AUTO 9.34 K/mm3 (1.96-9.15); NEUTROPHILS PERCENT AUTO 94 % (41-73); Platelet Count 176 K/mm3 (150-400); RDW Coefficient Variation 12.8 % (11.7-14.2); RDW Standard Deviation 40.6 fL (35.1-46.3); Red Blood Cell Count 3.96 M/mm3 (3.80-5.20); White Blood Cell Count 9.91 K/mm3 (4.00-11.30)
[2021-04-18 04:23] LABS: Anion Gap 1 mmol/L (6-16); Blood Urea Nitrogen 15 mg/dL (8-24); Bun/Creatinine Ratio 33.1 (12.0-20.0); CO2, Blood 32 mmol/L (21-32); Chloride, Blood 105 mmol/L (98-108); Creatinine, Blood 0.45 mg/dL (0.40-1.00); Glomerular Filtration Rate >60 (60-); Glucose, Blood 269 mg/dL (70-99); Magnesium, Blood 2.1 mg/dL (1.6-2.4); Phosphorus, Blood 2.8 mg/dL (2.5-4.9); Potassium, Blood 4.1 mmol/L (3.5-5.5); Sodium, Blood 138 mmol/L (136-145)
--- NOTE | 2021-04-18 05:47 | NUR ---
SHIFT SUMMARY PT REMAINS INTUBATED. VENT SETTINGS 26/300/16/80%. OGT IN PLACE. PT RECEIVING PROPOFOL 40MCG/KG/MIN, TPN. PRECEDEX ON STANDBY. PT WAS PRONED LAST NIGHT AND IS TOLERATING WELL. PT REMAINS SINUS JENNIFER WITH HR IN 40S. BOWEL TONES REMAIN HYPOACTIVE. CLARK IN PLACE WITH SHIFT OUTPUT OF 600ML. WILL REPORT TO ONCOMING RN.
--- NOTE | 2021-04-18 10:02 | NUR ---
ASSUMED CARE REPORT FROM LULU RN AT 0700. PT INTUBATED, SEDATED AND PRONED. VENT SETTINGS AC/VC 26/300/15/70%. LUNGS CLEAR. PT BREATHING OVER VENT. COUGH REFLEX PRESENT. PT RESPONSIVE TO PAINFUL STIMULI, MOVES EXT. PROPOFOL GTT FOR SEDATION. PRECEDEX ON STANDBY D/T HR. ABD ROUND, SOFT, HYPOACTIVE BT. OGT CLAMPED. CLARK PATENT, DRAINING CLEAR YELLOW URINE TO GRAVITY. BP STABLE. SB ON MONITOR, RATE 40-50'S. WILL CONTINUE TO MONITOR.
--- NOTE | 2021-04-18 14:34 | NUR ---
TUBE FEED STARTED PER ORDERS.
--- NOTE | 2021-04-18 17:26 | NUR ---
SHIFT SUMMARY PT REMAINS INTUBATED AND SEDATED. VENT SETTINGS AC 26/300/16/60%. LUNGS CLEAR. SCANT SECRETIONS. PT PRONED UNTIL 1230. PT AGITATED c CARE. QUIET WHEN UNDISTURBED. DOES NOT FOLLOW COMMANDS. PROPOFOL GTT FOR SEDATION. CONTINUES IN SB, RATE 40-50'S. BP STABLE. TUBE FEEDS STARTED THIS SHIFT. CLARK PATENT, DRAINING TO GRAVITY. PICC TO LUE, DRESSING C/D/I. WILL CONTINUE TO MONITOR UNTIL REPORT TO ONCOMING NURSE.
[2021-04-19 03:59] LABS: BASOPHILS ABSOLUTE AUTO 0.03 K/mm3 (0.00-0.23); BASOPHILS PERCENT AUTO 0 % (0-2); EOSINOPHILS PERCENT AUTO 0 % (0-6); Hematocrit 36.1 % (33.0-51.0); Hemoglobin 12.2 g/dL (11.5-16.0); IMMATURE GRAN ABSOLUTE AUTO 0.34 K/mm3 (0.00-0.10); IMMATURE GRAN PERCENT AUTO 2 % (0-1); LYMPHOCYTES ABSOLUTE AUTO 0.31 K/mm3 (0.84-5.20); LYMPHOCYTES PERCENT AUTO 2 % (21-46); MONOCYTES ABSOLUTE AUTO 0.41 K/mm3 (0.16-1.47); MONOCYTES PERCENT AUTO 3 % (4-13); Mean Corpuscular HGB 29.3 pg (26.0-34.0); Mean Corpuscular HGB Conc 33.8 g/dL (31.5-36.5); Mean Corpuscular Volume 87 fL (80-100); Mean Platelet Volume 10.9 fL (9.1-12.4); NEUTROPHILS ABSOLUTE AUTO 14.27 K/mm3 (1.96-9.15); NEUTROPHILS PERCENT AUTO 93 % (41-73); Platelet Count 198 K/mm3 (150-400); RDW Standard Deviation 40.5 fL (35.1-46.3); Red Blood Cell Count 4.16 M/mm3 (3.80-5.20); White Blood Cell Count 15.36 K/mm3 (4.00-11.30)
[2021-04-19 04:18] LABS: Alanine Aminotransfer (ALT/SGP 56 U/L (12-78); Albumin, Blood 1.8 g/dL (3.4-5.0); Albumin/Globulin Ratio 0.5 (0.8-1.8); Alk Phos 85 U/L (50-136); Anion Gap 3 mmol/L (6-16); Aspartate Aminotrans (AST/SGOT 28 U/L (12-37); Bilirubin, Total 0.3 mg/dL (0.1-1.0); Blood Urea Nitrogen 20 mg/dL (8-24); Bun/Creatinine Ratio 35.5 (12.0-20.0); CO2, Blood 29 mmol/L (21-32); Calcium, Blood 7.6 mg/dL (8.5-10.1); Chloride, Blood 106 mmol/L (98-108); Creatinine, Blood 0.56 mg/dL (0.40-1.00); Globulin, Blood 3.9 g/dL (2.2-4.0); Glomerular Filtration Rate >60 (60-); Glucose, Blood 167 mg/dL (70-99); Magnesium, Blood 2.4 mg/dL (1.6-2.4); Phosphorus, Blood 3.2 mg/dL (2.5-4.9); Potassium, Blood 4.2 mmol/L (3.5-5.5); Sodium, Blood 138 mmol/L (136-145); Total Protein, Blood 5.7 g/dL (6.4-8.2)
--- NOTE | 2021-04-19 06:17 | NUR ---
SHIFT SUMMARY PT REMAINS INTUBATED. VENT SETTINGS 26/300/16/60%. PT PRONED LAST NIGHT AND TOLERATING WELL. PT RECEIVING PROPOFOL 45MCG/KG/MIN. PT WAKENS DURING CARE, OPENS EYES AND PURPOSEFULLY MOVES EXTREMITIES. PT DOES NOT FOLLOW VERBAL COMMANDS. HR REMAINS IN 70S-90S. PT BECOMES HYPOTENSIVE AFTER TURNING BUT RECOVERS OVER TIME. TUBE FEEDINGS CONTINUE TO INFUSE. CLARK REMAINS IN PLACE. SHIFT OUTPUT OF 200ML OF BIJAN URINE. WILL REPORT TO ONCOMING RN.
--- NOTE | 2021-04-19 07:56 | NUR ---
0715: SBAR FROM CHLOÉ LIMA. PT WITH TACHYCARDIA @122/MIN. RASS 0 WITH BILATERAL LEG MOVEMENT, ARM MOVEMENT, AND SPONTANEOUS EYE OPENING. CONCERN FOR SUBOPTIMAL SEDATION. GAVE FENTANYL 50MCG (SEE OCT). HR IMMEDIATELY DECREASED TO 86/MIN. RESTARTED THE ORDERED PRECEDEX AT 0.2MCG/KG/MIN. PROPOFOL RUNNING AT 45MCG/KG/MIN. MONITORING BP FOR RESPONSE. ALARM LIMITS REVIEWED AND EMERGENCY EQUIPMENT AT BEDSIDE.
--- NOTE | 2021-04-19 10:49 | NUR ---
PT REMAINS ON PROPFOL AND PRECEDEX IV GTT WITH GOOD TOLERANCE. HR SB 58 W/ OCCASIONAL UNIFOCAL PVC NOTED.
--- NOTE | 2021-04-19 13:03 | NUR ---
1200: PT DE-PRONED WITH TEAM, TOLERATED WELL. 1300: PT TOLERATING VENTILATOR AND ADLS VERY WELL WITH RASS -3 TO -4 ON PRECEDEX 0.1MCG/KG/HR AND PROPOFOL 45MCG/KG/MIN. DECREASED PROPOFOL TO 40MCG/KG/MIN DUE TO SBP 90MMHG WITH MAP >60. WILL MONITORING RESPONSE FOR OPTIMIZATION OF SEDATION.
--- NOTE | 2021-04-19 16:35 | NUR ---
SHIFT SUMMARY NEURO: PT AGITATED AT BEGINNING OF SHIFT BUT WELL SEDATED WITH ADDITION OF PRECEDEX CURRENTLY AT 0.1MCG/KG/HR AND PROPOFOL CURRENTLY AT 40MCG/KG/MIN. STILL WITH COUGH/GAG. RECEIVED PRN FENTANYL. RESP: VENT AC/VC 26/300/60% AT THIS TIME, SPO2 93%. CARDIAC: SINUS TACH THEN SR THEN SINUS JENNIFER WITH OCCASIONAL UNIFOCAL PVC. REC'D 1L BOLUS NS FOR SBP 83MMHG. GI: TF AT GOAL. BGL CONTROLLED. : CLARK DRAINING APPROXIMATELY 30-35ML/HR CLEAR BIJAN URINE. INTEG: NO CHANGES. PSYCH: NO FAMILY SPOKE WITH THIS RN TODAY.
--- NOTE | 2021-04-19 21:00 | NUR ---
ASSESSMENT/ASSUMED CARE PT INTUBATED AND ON [facility] VENT. LUNGS COARSE AND DECREASED. VENT SETTINGS AC/VC 26/300/16/60%. RT SUCTIONING VIA ET TUBE SMALL AMT WHITE. HEART RATE JENNIFER IN THE 40-50'S. BP STABLE. BT+HYPOACIVE. TUBE FEED VITAL HP AT 20 ML/HR, WATER 30 ML Q4HR VIA OG TUBE. CLARK CATH PATENT DRAINING BIJAN URINE. PICC LINE TO LEFT UPPER ARM WITH PROPOFOL 40 MCQ/KG/MIN, PRECEDEX 0.1 MCQ/KG/HR, AND NS AT 10 ML/HR. SITE CLEAR. IV 20G TO LEFT HAND SALINE LOCKED, SITE CLEAR. ORAL CARE DONE AND PT PRONED. BILAT SOFT WRIST RESTRAINTS ON.
[2021-04-20 04:14] LABS: BASOPHILS ABSOLUTE AUTO 0.02 K/mm3 (0.00-0.23); BASOPHILS PERCENT AUTO 0 % (0-2); EOSINOPHILS PERCENT AUTO 0 % (0-6); Hematocrit 36.5 % (33.0-51.0); Hemoglobin 12.3 g/dL (11.5-16.0); IMMATURE GRAN PERCENT AUTO 3 % (0-1); LYMPHOCYTES PERCENT AUTO 3 % (21-46); MONOCYTES ABSOLUTE AUTO 0.48 K/mm3 (0.16-1.47); MONOCYTES PERCENT AUTO 4 % (4-13); Mean Corpuscular HGB 29.1 pg (26.0-34.0); Mean Corpuscular HGB Conc 33.7 g/dL (31.5-36.5); Mean Corpuscular Volume 87 fL (80-100); Mean Platelet Volume 10.7 fL (9.1-12.4); NEUTROPHILS ABSOLUTE AUTO 11.36 K/mm3 (1.96-9.15); NEUTROPHILS PERCENT AUTO 90 % (41-73); Platelet Count 190 K/mm3 (150-400); RDW Coefficient Variation 13.2 % (11.7-14.2); Red Blood Cell Count 4.22 M/mm3 (3.80-5.20); White Blood Cell Count 12.66 K/mm3 (4.00-11.30)
[2021-04-20 04:42] LABS: Magnesium, Blood 2.1 mg/dL (1.6-2.4)
[2021-04-20 04:43] LABS: Albumin, Blood 1.8 g/dL (3.4-5.0); Anion Gap 3 mmol/L (6-16); Blood Urea Nitrogen 17 mg/dL (8-24); Bun/Creatinine Ratio 36.2 (12.0-20.0); CO2, Blood 28 mmol/L (21-32); Calcium, Blood 7.6 mg/dL (8.5-10.1); Chloride, Blood 107 mmol/L (98-108); Creatinine, Blood 0.47 mg/dL (0.40-1.00); Glomerular Filtration Rate >60 (60-); Glucose, Blood 169 mg/dL (70-99); Phosphorus, Blood 2.9 mg/dL (2.5-4.9); Potassium, Blood 4.4 mmol/L (3.5-5.5); Sodium, Blood 138 mmol/L (136-145)
[2021-04-20 04:57] LABS: BAND PERCENT MAN 1 % (0-8); BASOPHILS PERCENT MAN 0 % (0-2); EOSINOPHILS PERCENT MAN 0 % (0-6); LYMPHOCYTES ABSOLUTE MAN 0.63 K/mm3 (0.84-5.20); LYMPHOCYTES PERCENT MAN 5 % (21-46); METAMYELOCYTE PERCENT MAN 4 % (0-0); MONOCYTES ABSOLUTE MAN 0.37 K/mm3 (0.16-1.47); MONOCYTES PERCENT MAN 3 % (4-13); NEUTROPHILS ABSOLUTE MAN 11.14 K/mm3 (1.96-9.15); SEG NEUTROPHILS PERCENT MAN 87 % (41-73); TOTAL CELLS COUNTED 100
--- NOTE | 2021-04-20 06:27 | NUR ---
SHIFT SUMMARY PT CONT INTUBATED AND ON [facility] VENT. CURRENT VENT SETTINGS AC/VC 26/30/12/50%. LUNGS CONT COARSE AND DECREASED. SMALL AMT FLUID SUCTIONED VIA ET TUBE. BILAT WRIST RESTRAINTS ON. PT PRONED. TURNED AND MOVED Q2HRS. ORAL CARE Q4HRS. TUBE FEED AT GOAL. BLOOD GLUCOSED COVERED Q6HRS. PICC TO LEFT UPPER ARM, SITE CLEAR. PT SEDATED WITH PROPOFOL AND PRECEDEX. PRECEDEX AT 0.1MCQ/KG/HR DUE TO BRADYCARDIA. HEART RATE 40-50'S DURING THE NIGHT. BP STABLE. REPORT TO ON COMING NURSE
--- NOTE | 2021-04-20 08:15 | NUR ---
ASSUMED CARE: REPORT RECEIVED FROM AMANDA May RN & PARISH Roberts RN. ASSUMED CARE OF THIS PT AT APPROX 0700. ON ASSESSMENT, THE PT IS SEDATED W/ PROPOFOL & PRECEDEX. SHE AWAKENS SLIGHTLY TO VERBAL AND/OR TACILE STIMULUS, FUNES. IS NOT OPENING EYES OR FOLLOWING DIRECTIONS W/ SEDATION INFUSING. LS DIM IN BASES, VENT SETTINGS: AC/VC 26/350/12/50% W/ O2 SATS > 90%. MONITOR SHOWS SB W/ HR 40-50s, BP STABLE. OGT IN PLACE W/ TUBE FEEDS INFUSING AT GOAL RATE, LOW RESIDUALS. NO BM, BOWEL CARE PER EMAR. CLARK PATENT/ DRAINING YELLOW URINE. SKIN CONDITION OVERALL INTACT, BRUISING TO BRIDGE OF NOSE R/T PRIOR BIPAP USE. Q2H REPOSITIONING TO MAINTAIN SKIN INTEGRITY. PT CURRENTLY PRONED, WILL SUPINATE AT 1200 PER ORDERS. WILL CONTINUE TO MONITOR & UPDATE NEEDED.
--- NOTE | 2021-04-20 08:26 | NUR ---
LATE ENTRY COPIED FROM [facility] EMR - WEEKEND UPDATES Update 04/19/21: Due to worsening respiratory failure, pt. was transferred to the ICU from PCU on 04/17/21. Unfortunately, need for intubation at that time. 04/19/21 - Day 11 of hospitalization and day 2 of mechanical ventilation. Settings: PEEP 16. FiO2 50%. Tolerating prone position. Able to wean paralytic. Dr. Najera has updated patient's Mike Nix.
--- NOTE | 2021-04-20 18:56 | NUR ---
SHIFT SUMMARY: NO ACUTE CHANGES SINCE PRIOR UPDATES. PT REMAINS SEDATED W/ PROPOFOL & PRECEDEX, RESTING QUIETLY. LS DIM IN BASES, VENT SETTINGS: AC/VC 26/300/10/50% W/ O2 SATS > 90% ON AVG. MONITOR SHOWS SB-SR W/ HR 40-60s, SLIGHT HYPOTENSION THIS AFTERNOON RESOLVED W/ SEDATION TITRATION. OGT IN PLACE W/ TUBE FEEDS INFUSING AT GOAL RATE, LOW RESIDUALS. CLARK PATENT/ DRAINING YELLOW URINE. SKIN CONDITION OVERALL INTACT, Q2H REPOSITIONING TO MAINTAIN SKIN INTEGRITY. WILL CONTINUE TO MONITOR & REPORT OFF TO ONCOMING RN.
--- NOTE | 2021-04-20 20:50 | NUR ---
ASSESSMENT/ASSUMED CARE PT INTUBATED AND ON [facility] VENT. LUNGS CLEAR BUT DECREASED. VENT SETTINGS AC/VC 26/300/10/50%. SUCTIONED MODERATED AMT CREAM COLORED LIQUID VIA ET TUBE. HEART RATE REGULAR, BP LOW BUT MAP STILL IN THE 60'S. DR FERGUSON NOTIFIED. HOLDING SECOND DOSE OF LASIX AND SEDATION DECREASED. BIALT WRIST RESTRAINTS ON. BT+HYPOACTIVE. TUBE FEED VIA OG VITAL HP AT GOAL RATE 35 ML/HR, WATER 30 ML Q4HR. PICC LINE TO LEFT UPPER ARM WITH PROPOFOL AT 35 MCQ/KG/MIN, NS AT 10ML/HR AND PRECEDEX AT 0.1 MCQ/KG/HR. CLARK CATH PATENT DRAINING YELLOW URINE. REPOSITIONED AND ORAL CARE DONE.
--- NOTE | 2021-04-20 22:51 | NUR ---
SPO2 DOWN TO 86-87%, SUCTIONED MODERATED AMT CREAM COLOREED LIQUID VIA ET TUBE. INCREASED FIO2 TO 75%. RT NOTIFIED
--- NOTE | 2021-04-20 23:54 | NUR ---
HYPOTENSION DR GONZALES GIVEN UPDATE. EXPLAINED THAT PT AWAKE DUE TO DECREASING SEDATION BECAUSE OF HYPOTENSION. ALSO, THAT SECOND DOSE OF LASIX WAS HELD. RECEIVED ORDER FOR LEVOPHED IF NEEDED.
[2021-04-21 04:23] LABS: Hematocrit 37.3 % (33.0-51.0); Hemoglobin 12.7 g/dL (11.5-16.0); Mean Corpuscular HGB 29.3 pg (26.0-34.0); Mean Corpuscular Volume 86 fL (80-100); Platelet Count 220 K/mm3 (150-400); RDW Coefficient Variation 13.1 % (11.7-14.2); RDW Standard Deviation 40.2 fL (35.1-46.3); Red Blood Cell Count 4.34 M/mm3 (3.80-5.20); White Blood Cell Count 16.92 K/mm3 (4.00-11.30)
[2021-04-21 04:38] LABS: Albumin, Blood 1.9 g/dL (3.4-5.0); Anion Gap 5 mmol/L (6-16); Blood Urea Nitrogen 16 mg/dL (8-24); Bun/Creatinine Ratio 32.8 (12.0-20.0); CO2, Blood 30 mmol/L (21-32); Calcium, Blood 7.9 mg/dL (8.5-10.1); Chloride, Blood 104 mmol/L (98-108); Creatinine, Blood 0.49 mg/dL (0.40-1.00); Glomerular Filtration Rate >60 (60-); Glucose, Blood 174 mg/dL (70-99); Magnesium, Blood 2.1 mg/dL (1.6-2.4); Phosphorus, Blood 3.6 mg/dL (2.5-4.9); Potassium, Blood 3.6 mmol/L (3.5-5.5); Sodium, Blood 139 mmol/L (136-145)
[2021-04-21 05:46] LABS: BAND PERCENT MAN 4 % (0-8); BASOPHILS PERCENT MAN 0 % (0-2); EOSINOPHILS PERCENT MAN 0 % (0-6); LYMPHOCYTES PERCENT MAN 3 % (21-46); MONOCYTES ABSOLUTE MAN 0.67 K/mm3 (0.16-1.47); MONOCYTES PERCENT MAN 4 % (4-13); NEUTROPHILS ABSOLUTE MAN 15.73 K/mm3 (1.96-9.15); SEG NEUTROPHILS PERCENT MAN 89 % (41-73); TOTAL CELLS COUNTED 100
--- NOTE | 2021-04-21 06:30 | NUR ---
SHIFT SUMMARY PT CONT INTUBATED AND ON [facility] VENT. INCREASED FIO2 DURING THE NIGHT DUE TO DROP IN SPO2 INTO THE 80'S. CURRENT VENT SETTINGS AC/VC 26/300/10/75%. LUNGS CLEAR BUT DECREASED. HEART RATE REGULAR. BP LOW AND STARTED ON LEVOPHED AT 2 MCQ/MIN TO KEEP MAP GREATER THAN 65. BT+HYPOACTIVE. TUBE FEED AT GOAL VITAL HP AT 35 ML/HR, WATER 30 ML Q4 HR. MIN RESIDUAL. CLARK CATH PATENT DRAINING YELLOW URINE. PICC LINE TO LEFT UPPER ARM WITH PROPOFOL AT 45 MCQ/KG/MIN, PRECEDEX AT 0.1 MCQ/KG/MIN, NS AT 10 ML/HR, AND LEVOPHED AT 2 MCQ/MIN. BLOOD GLUCOSE Q6HR WITH SLIDING SCALE GIVEN. BILAT SOFT WRIST RESTRAINT ON. PT TURNED Q2HRS. REPORT TO ON COMING NURSE
--- NOTE | 2021-04-21 09:02 | NUR ---
Pt resting comfortably on vent at peep 10 and FiO2 75%. Parker not working again; swapped out to 16fr and 500cc came out immediately. Gave pt a bath and some fentanyl due to brow furrowing.
--- NOTE | 2021-04-21 14:35 | NUR ---
Update 04/21/21: Day 13 of hospitalization. Day 4 of mechanical ventilation. Settings: FiO2 60%. PEEP 7. SPO2 93%. Pt. is opening her eyes. In process of weaning off the vent. Feeding tube in place. GFR WNL. Attempted to contact patient's Mike Nix to provide updates. No answer at this time. Left message. Will provide updates when he is available.
--- NOTE | 2021-04-21 15:49 | NUR ---
Spoke with patient's Mike and provided updates. He expressed how grateful he is for the care that she is receiving here. I let him know that I would pass that on to her care team. Offered support and to answer any questions that he might have. None at this time. Plan to continue monitoring patients care and provide updates daily to April's .
--- NOTE | 2021-04-21 18:14 | NUR ---
Pt is still intubated and sedated and restrained. Parker replaced this morning due to malfunctioning. Levophed up and down; currently at 4 mcg. Propofol down to 30mcg. TF at goal. Vent settings down to peep of 7 and FiO2 50%.
[2021-04-22 04:21] LABS: BASOPHILS ABSOLUTE AUTO 0.02 K/mm3 (0.00-0.23); BASOPHILS PERCENT AUTO 0 % (0-2); EOSINOPHILS ABSOLUTE AUTO 0.01 K/mm3 (0.00-0.68); EOSINOPHILS PERCENT AUTO 0 % (0-6); Hematocrit 30.8 % (33.0-51.0); Hemoglobin 10.8 g/dL (11.5-16.0); IMMATURE GRAN ABSOLUTE AUTO 0.32 K/mm3 (0.00-0.10); IMMATURE GRAN PERCENT AUTO 3 % (0-1); LYMPHOCYTES ABSOLUTE AUTO 0.43 K/mm3 (0.84-5.20); LYMPHOCYTES PERCENT AUTO 4 % (21-46); MONOCYTES ABSOLUTE AUTO 0.39 K/mm3 (0.16-1.47); MONOCYTES PERCENT AUTO 3 % (4-13); Mean Corpuscular HGB 30.2 pg (26.0-34.0); Mean Corpuscular HGB Conc 35.1 g/dL (31.5-36.5); Mean Corpuscular Volume 86 fL (80-100); Mean Platelet Volume 11.4 fL (9.1-12.4); NEUTROPHILS ABSOLUTE AUTO 10.98 K/mm3 (1.96-9.15); NEUTROPHILS PERCENT AUTO 90 % (41-73); Platelet Count 181 K/mm3 (150-400); RDW Coefficient Variation 13.2 % (11.7-14.2); RDW Standard Deviation 41.1 fL (35.1-46.3); Red Blood Cell Count 3.58 M/mm3 (3.80-5.20); White Blood Cell Count 12.15 K/mm3 (4.00-11.30)
[2021-04-22 04:37] LABS: Albumin, Blood 1.6 g/dL (3.4-5.0); Anion Gap 5 mmol/L (6-16); Blood Urea Nitrogen 15 mg/dL (8-24); Bun/Creatinine Ratio 27.1 (12.0-20.0); CO2, Blood 29 mmol/L (21-32); Chloride, Blood 102 mmol/L (98-108); Creatinine, Blood 0.55 mg/dL (0.40-1.00); Glomerular Filtration Rate >60 (60-); Glucose, Blood 150 mg/dL (70-99); Phosphorus, Blood 3.4 mg/dL (2.5-4.9); Potassium, Blood 3.5 mmol/L (3.5-5.5); Sodium, Blood 136 mmol/L (136-145); Triglycerides 881 mg/dL (30-160)
--- NOTE | 2021-04-22 06:15 | NUR ---
SHIFT SUMMARY PT REMAINS INTUBATED. VENT SETTINGS 25/300/7/60%. PT TOLERATING VENT WELL. OCCASIONAL COUGH, SPO2 DECREASES AND INCREASES AFTER SUCTIONING. PT RECEIVING PRECEDEX 0.2MCG/KG/HR, PROPOFOL 35MCG/KG/MIN, AND LEVOPHED 1MCG/MIN. TUBE FEEDING INFUSING AT GOAL RATE. BOWEL TONES HYPOACTIVE. DROP FOOT BOOTS REMAIN IN PLACE. CLARK REMAINS IN PLACE DRAINING CLEAR YELLOW URINE. TOTAL SHIFT OUTPUT 600ML. WILL REPORT TO ONCOMING RN.
--- NOTE | 2021-04-22 09:30 | NUR ---
INITIAL ASSESSMENT PATIENT INTUBATED AND ON SEDATION. PATIENT RESPONDS TO NOXIOUS STIMULI BY OPENING EYES AND MAKING EYE CONTACT WITH NURSE. PATIENT IS NOT FOLLOWING ANY COMMANDS AT THIS TIME. + COUGH, GAG AND SWALLOW REFLEXES NOTED. DROP FOOT BOOTS IN PLACE. PATIENT AFEBRILE. PATIENT GIVEN PRN FENANYL FOR GRIMACING. PATIENT APPEARS MORE COMFORTABLE AFTER ADMINISTRATION. PATIENT ON VENT SETTINGS AC/VC 26, TV 300, PEEP 7 AND 75% FIO2. RR 30S TO 40S. SMALL AMOUNT OF THICK, CHAN SECRETIONS NOTED FROM ETT. LUNG SOUNDS COARSE THROUGHOUT. PATIENT IN ST WITH PACS. HR LOW 100S TO 120. SBP 90S TO LOW 100S. LEVOPHED ON SB AT BEGINNING OF SHIFT AND HAS BEEN INCREASED TO 3 MCG/ MINUTE. 2+ EDEMA NOTED IN L HAND. 1+ EDEMA NOTED IN R HAND AND BLES. ABD SOFT WITH HYPOACTIVE BS NOTED. VHP INFUSING AT GOAL RATE OF 35 MLS/ HOUR WITH 30 ML WATER FLUSH Q4H. RESIDUAL OF 5 MLS REINSTILLED. LAST BM DOCUMENTED ON 04/10. PRN MOM GIVEN. CLARK DRAINING DARK YELLOW COLORED URINE. SCATTERED BRUISES NOTED T/O BODY INCLUDING ON BRIDGE OF NOSE. PRECEDEX AT 0.2 MCG/ KG/ HOUR, PROPOFOL AT 35 MCG/ KG/ MINUTE, NS TKO. BED LOW. WILL CONTINUE TO MONITOR PATIENT FREQUENTLY THROUGHOUT SHIFT.
--- NOTE | 2021-04-22 11:00 | NUR ---
NO SEDATION VACATION TODAY PER DR. GONZALES.
--- NOTE | 2021-04-22 14:00 | NUR ---
PATIENT AFEBRILE. PRECEDEX AT 0.6 MCG/ KG/ HOUR AND PROPOFOL AT 15 MCG/ KG/ MINUTE. HR 70S TO 80S. SBP 1-TEENS TO 130S. PATIENT ON SAME VENT SETTINGS. RR IN THE 20S. PATIENT CHANGED FROM VHP TO PIVOT 1.5; STARTED AT GOAL RATE OF 20 MLS/ HOUR. BLOOD SUGAR OF 221; COVERAGE GIVEN. NO OTHER ACUTE CHANGES TO NOTE ON AT THIS TIME. NO SIGNS OF PAIN OR DISTRESS NOTED. WILL CONTINUE TO MONITOR.
--- NOTE | 2021-04-22 16:30 | NUR ---
PATIENT AFEBRILE. HR 60S TO 70S. SBP IN THE LOW 100S. PRECEDEX AT 0.6 MCG/ KG/ HOUR. PROPOFOL AT 15 MCG/ KG/ HOUR. NO OTHER ACUTE CHANGES TO NOTE ON AT THIS TIME. WILL CONTINUE TO MONITOR.
--- NOTE | 2021-04-22 19:24 | NUR ---
SHIFT SUMMARY PATIENT REMAINED INTUBATED AND SEDATED. PATIENT CONTINUES TO RESPOND TO PAIN. PATIENT NOT FOLLOWING COMMANDS AT THIS TIME. PATIENT REMAINED AFEBRILE. AC 26, TV 300, PEEP 7 AND FIO2 INCREASED FROM 65 TO 75% FIO2 DURING DAY AND NOW DOWN TO 50% FIO2 BY END OF SHIFT. RR 20S TO 40S. PATIENT SB TO ST WITH PACS. HR 50S TO 120S. SBP 80S TO 170S. TF CHANGED TO PIVOT 1.5 AT 20 MLS/ HOUR. NO BM THIS SHIFT. PRN MOM GIVEN. CLARK DRAINED 1925 MLS OF DARK YELLOW COLORED URINE. NO CHANGE TO SKIN NOTED. PATIENT REPOSITIONED Q2H. PROPOFOL AT 15 MCG/ KG/ MINUTE, PRECEDEX AT 0.6 MCG/ KG/ HOUR. LEVOPHED AT 2 MCG/ HOUR. PATIENT RECEIVED 20 MG IV LASIX THIS SHIFT. BLOOD SUGARS 100S TO 200S. SENOKOT AND CIPRO ADDED TO EMAR. PATIENT HAD PARTIAL BATH THIS SHIFT. PATIENT APPEARS COMFORTABLE AT THIS TIME. REPORT GIVEN TO ASSUMING SERVICE PERSON RN.
[2021-04-23 03:45] LABS: BASOPHILS ABSOLUTE AUTO 0.01 K/mm3 (0.00-0.23); BASOPHILS PERCENT AUTO 0 % (0-2); EOSINOPHILS ABSOLUTE AUTO 0.01 K/mm3 (0.00-0.68); EOSINOPHILS PERCENT AUTO 0 % (0-6); Hematocrit 30.2 % (33.0-51.0); Hemoglobin 10.2 g/dL (11.5-16.0); IMMATURE GRAN ABSOLUTE AUTO 0.12 K/mm3 (0.00-0.10); IMMATURE GRAN PERCENT AUTO 1 % (0-1); LYMPHOCYTES ABSOLUTE AUTO 0.28 K/mm3 (0.84-5.20); LYMPHOCYTES PERCENT AUTO 3 % (21-46); MONOCYTES PERCENT AUTO 2 % (4-13); Mean Corpuscular HGB 29.2 pg (26.0-34.0); Mean Corpuscular HGB Conc 33.8 g/dL (31.5-36.5); Mean Corpuscular Volume 87 fL (80-100); Mean Platelet Volume 10.9 fL (9.1-12.4); NEUTROPHILS ABSOLUTE AUTO 7.75 K/mm3 (1.96-9.15); NEUTROPHILS PERCENT AUTO 93 % (41-73); Platelet Count 148 K/mm3 (150-400); RDW Coefficient Variation 13.3 % (11.7-14.2); RDW Standard Deviation 41.4 fL (35.1-46.3); Red Blood Cell Count 3.49 M/mm3 (3.80-5.20); White Blood Cell Count 8.37 K/mm3 (4.00-11.30)
[2021-04-23 04:02] LABS: Anion Gap 3 mmol/L (6-16); Blood Urea Nitrogen 18 mg/dL (8-24); Bun/Creatinine Ratio 35.5 (12.0-20.0); CO2, Blood 32 mmol/L (21-32); Calcium, Blood 7.8 mg/dL (8.5-10.1); Chloride, Blood 103 mmol/L (98-108); Creatinine, Blood 0.51 mg/dL (0.40-1.00); Glomerular Filtration Rate >60 (60-); Glucose, Blood 162 mg/dL (70-99); Magnesium, Blood 2.2 mg/dL (1.6-2.4); Potassium, Blood 3.9 mmol/L (3.5-5.5); Sodium, Blood 138 mmol/L (136-145)
--- NOTE | 2021-04-23 06:26 | NUR ---
SHIFT SUMMARY PT REMAINS INTUBATED, VENT SETTINGS 26/300/7/50%. PT TOLERATING WELL BUT OCCASIONALLY COUGHS. SMALL AMOUNT OF WHITE SECRETIONS. PT RECEIVING PROPOFOL 15MCG/KG/MIN AND PRECEDEX 0.4MCG/KG/HR. LEVOPHED REMAINS AT BEDSIDE ON STANDBY. TUBE FEEDING INFUSING AT GOAL RATE. PT WAKENS TO VERBAL STIMULI. NODS HEAD YES/NO TO ANSWER QUESTIONS, MOVES EXTREMITIES PURPOSEFULLY. CLARK REMAINS IN PLACE DRAINING CLEAR YELLOW URINE. SHIFT OUTPUT OF 1350ML. WILL REPORT TO ONCOMING RN
--- NOTE | 2021-04-23 09:01 | NUR ---
INITIAL ASSESSMENT PATIENT INTUBATED AND ON SEDATION. PATIENT ANXIOUS AT TIMES. PATIENT GIVEN PRN FENTANYL THIS AM AFTER PATIENT NODDING HEAD "YES" WHEN ASKED IF IN PAIN. PATIENT CONTINUES TO FOLLOW SOME SIMPLE COMMANDS SUCH SQUEEZING WITH HANDS ON COMMAND AND NODDING/ SHAKING HEAD TO ANSWER YES/ NO QUESTIONS. PATIENT AFEBRILE. PATIENT ON AC 26, TV 300, PEEP 7 AND 50% FIO2. LUNGS COARSE THROUGHOUT. RR IN THE 20S. MODERATE AMOUNT OF THICK, LIGHT CHAN SECRETIONS NOTED FROM ETT. PATIENT IN SR, HR 60S TO 70S. SBP 90S TO 120S. ABD SOFT WITH HYPOACTIVE BS NOTED. TF INFUSING AT GOAL RATE. RESIDUAL OF ZERO THIS AM. LAST BM ON 04/10. PRN SUPPOSITORY AND SENOKOT GIVEN THIS AM. CLARK DRAINING YELLOW COLORED URINE. SCAB TO BRIDGE OF NOSE. SCATTERED BRUISES NOTED. PRECEDEX AT 0.6 MCG/ KG/ HOUR, PROPOFOL AT 15 MCG/ KG/ MINUTE, NS TKO. BED LOW. WILL CONTINUE TO MONITOR PATIENT FREQUENTLY THROUGHOUT SHIFT.
--- NOTE | 2021-04-23 13:45 | NUR ---
PATIENT AFEBRILE. HR IN THE 50S. SBP IN THE 1-TEENS. PATIENT ON AC/ VC 26, TV 385, PEEP 5 AND 90% FIO2. RR IN THE 20S. OT 20 MG IV LASIX GIVEN. PRECEDEX AT 1.4 MCG/ KG/ HOUR AND PROPOFOL AT 15 MCG/ KG/ MINUTE. TF INCREASED TO NEW GOAL RATE OF 35 MLS/ HOUR. BLOOD SUGAR OF 132; NO COVERAGE NEEDED AT THIS TIME. PATIENT APPEARS MORE COMFORTABLE AFTER PRN FENTANYL GIVEN SHORT TIME AGO. NO OTHER ACUTE CHANGES TO NOTE ON AT THIS TIME. WILL CONTINUE TO MONITOR.
--- NOTE | 2021-04-23 17:00 | NUR ---
PATIENT AFEBRILE. PRECEDEX AT 1.4 MCG/ KG/ HOUR, PROP ON SB. PATIENT GIVEN PRN ATIVAN FOR INCREASED AGITATION AND ANXIETY. HR IN THE 60S. SBP 80S TO LOW 100S. PATIENT REMAINS ON SAME VENT SETTINGS. RR IN THE 20S. BLOOS SUGAR 169; COVERAGE GIVEN.
--- NOTE | 2021-04-23 18:21 | NUR ---
Case conference with KIRILL Reynolds, who has been in close contact with pt's t/o admission. He is requesting a time for a short visit due to prolonged hospitalization and his concern that pt may be giving up hope. Arranged with ICU supervisor car and yard for to visit tomorrow at 11 am. Will notify [place] screener in am. Spoke with on the phone with Gail to confirm visit time and protocol. is not ill and has not been in quarantine. He states he is able to pass COVID screening required to enter the hospital.
--- NOTE | 2021-04-23 18:37 | NUR ---
Provided updates to patient's Mike this evening. We talked about Brianne's history of depression and anxiety. They have been for Brianne's entire hospitalization. Requested that Mike be allowed to visit Brianne. It would be good for April to hear his voice and know that he is there with her. Discussed care with ICU charge nurse and palliative care nurse Debra. Approval given for Mike to come in tomorrow at 11am. Check-in desk notified by palliative care that he is to be allowed in. He will contact me if any issues. I am very grateful to all that will be allowing this visit to occur.
--- NOTE | 2021-04-23 18:43 | NUR ---
SHIFT SUMMARY PATIENT REMAINED INTUBATED AND ON SEDATION. PATIENT ABLE TO MAKE EYE CONTACT AND FOLLOW SOME SIMPLE COMMANDS. PATIENT REMAINED AFEBRILE. PRECEDEX AT 1.4 MCG/ KG/ HOUR AND PROPOFOL ON SB. PATIENT GIVEN PRN FENTANYL AND ATIVAN FOR SIGNS OF PAIN AND AGITATION/ ANXIETY. VENT SETTINGS CHANGED T/O SHIFT. VENT SETTINGS CURRENTLY AC 26, TV 385, PEEP 5 AND 90% FIO2. FIO2 HAS INCREASED THIS SHIFT. LUNGS REMAIN COARSE. CONTINUE TO SUCTION SMALL TO MODERATE AMOUNTS OF THICK, CHAN SPUTUM FROM ETT. PATIENT SB TO SR, HR 50S TO 70S. SBP RANGED FROM 80S TO 140S. TF INCREASED TO NEW GOAL RATE OF 35 MLS/ HOUR. NO BM THIS SHIFT. PRN SUPPOSITORY AND SENOKOT GIVEN THIS SHIFT. CLARK DRAINED 3450 MLS OF YELLOW COLORED URINE. NO CHANGES TO SKIN NOTED. PATIENT REPOSITIONED T/O SHIFT. PATIENT RECEIVED 20 MG IV LASIX OT THIS SHIFT. BLOOD SUGARS IN THE 100S. PATIENT APPEARS COMFORTABLE AT THIS TIME. BED LOW, CALL LIGHT IN REACH. REPORT WILL BE GIVEN TO ASSUMING SQL DATA ANALYST NURSE SHORTLY.
--- NOTE | 2021-04-23 20:38 | NUR ---
ASSUMPTION OF CARE PT REMAINS INTUBATED. VENT SETTINGS AC 26/300/5/90%. SPO2 >95%, TITRATED FIO2 DOWN TO 80%. PT RECEIVING PRECEDEX 1.4MCG/KG/HR. PT OPENS EYES SPONTANEOUSLY, MAKES EYE CONTACT AND NODS/SHAKES HEAD TO ANSWER QUESTIONS. PT FOLLOWS VERBAL COMMANDS AND MOVES ALL EXTREMITIES. PT C/O NECK AND BACK PAIN, ROM PERFORMED, REPOSITIONED AND MEDICATED PER EMAR. PIVOT 1.5 TUBE FEED INFUSING AT GOAL RATE OF 35ML/HR WITH 30ML WATER FLUSHES Q4HRS. PT APPEARS CALM AND NODS/SHAKES HEAD APPROPRIATELY. SEE SHIFT ASSESSMENT.
[2021-04-24 05:37] LABS: BASOPHILS ABSOLUTE AUTO 0.01 K/mm3 (0.00-0.23); BASOPHILS PERCENT AUTO 0 % (0-2); EOSINOPHILS ABSOLUTE AUTO 0.06 K/mm3 (0.00-0.68); EOSINOPHILS PERCENT AUTO 1 % (0-6); Hematocrit 30.9 % (33.0-51.0); Hemoglobin 10.4 g/dL (11.5-16.0); IMMATURE GRAN ABSOLUTE AUTO 0.15 K/mm3 (0.00-0.10); IMMATURE GRAN PERCENT AUTO 2 % (0-1); LYMPHOCYTES ABSOLUTE AUTO 0.36 K/mm3 (0.84-5.20); LYMPHOCYTES PERCENT AUTO 4 % (21-46); MONOCYTES ABSOLUTE AUTO 0.18 K/mm3 (0.16-1.47); MONOCYTES PERCENT AUTO 2 % (4-13); Mean Corpuscular HGB Conc 33.7 g/dL (31.5-36.5); Mean Corpuscular Volume 86 fL (80-100); Mean Platelet Volume 10.6 fL (9.1-12.4); NEUTROPHILS ABSOLUTE AUTO 7.49 K/mm3 (1.96-9.15); NEUTROPHILS PERCENT AUTO 91 % (41-73); Platelet Count 170 K/mm3 (150-400); RDW Coefficient Variation 13.2 % (11.7-14.2); RDW Standard Deviation 41.1 fL (35.1-46.3); Red Blood Cell Count 3.59 M/mm3 (3.80-5.20); White Blood Cell Count 8.25 K/mm3 (4.00-11.30)
[2021-04-24 05:51] LABS: Anion Gap 4 mmol/L (6-16); Blood Urea Nitrogen 20 mg/dL (8-24); Bun/Creatinine Ratio 37.1 (12.0-20.0); CO2, Blood 30 mmol/L (21-32); Calcium, Blood 7.5 mg/dL (8.5-10.1); Chloride, Blood 103 mmol/L (98-108); Creatinine, Blood 0.54 mg/dL (0.40-1.00); Glomerular Filtration Rate >60 (60-); Glucose, Blood 136 mg/dL (70-99); Phosphorus, Blood 2.1 mg/dL (2.5-4.9); Potassium, Blood 3.6 mmol/L (3.5-5.5); Sodium, Blood 137 mmol/L (136-145)
--- NOTE | 2021-04-24 06:50 | NUR ---
SHIFT SUMMARY PT REMAINS INTUBATED, VENT SETTINGS 26/380/8/50%. PT HAS BEEN AWAKE ON AND OFF THROUGHOUT THE SHIFT. PT NODS HEAD YES/NO TO ANSWER QUESTIONS. ANXIOUS AT TIMES, MEDICATED PER EMAR, AND PROVIDED REASSURANCE TO CALM PT. TUBE FEEDING INFUSING AT GOAL RATE. PT HAD SMALL BM THIS SHIFT, BOWEL TONES ACTIVE. CLARK REMAINS IN PLACE, SHIFT OUTPUT OF 700ML. AROUND 0500, PT BECAME VERY ANXIOUS. DESPITE REPOSITIONING, MEDICATION AND REASSURANCE, PT REMAINS ANXIOUS. PROPOFOL WILL BE RESTARTED. WILL REPORT TO ONCOMING RN.
--- NOTE | 2021-04-24 10:23 | NUR ---
ASSUMED PT CARE AT 0700. PROP STARTED ON NOC SHIFT AT 20MCG DUE TO PT AGITATION AND DIFFICULTY TOLERATING THE VENT. PRECEDEX AT 1.4. RT IN TO ADJUST VENT SETTINGS TO DECREASE PT WORK OF BREATHING. RATE 26, 285, PEEP 5, FI02 TITRATED UP TO 80% TO MAINTAIN OXYGENTATION OF 88% AND GREATER. DISCUSSED ADDING FENTANYL OR VERSED GTT TO ACHIEVE PT COMFORT WITH GOAL OF BEING ABLE TO TURN OFF PROP. NO NEW ORDERS AT THIS TIME. LEVO TURNED BACK ON THIS SHIFT DUE TO SOFT BP. PLAN FOR TO VISIT THIS AM.
--- NOTE | 2021-04-24 14:35 | NUR ---
Case conf early this am with KIRILL CANNON to confirm pt's visit planned at 11 am today. Screener notified at [facility] to allow in for visit. This was approved by ICU charge nurse yesterday pm.
--- NOTE | 2021-04-24 20:00 | NUR ---
ASSUMED CARE OF PT AT 1915. REPORT RECEIVED. PT PRESENTS IN BED. ANXIOUS WITH HIGH RESPIRATIONS. PT MEDICATED WITH 50 MCG FENTANYL AND HAS PROPOFOL INCREASED TO 45 MCG'S/KG/MIN. DR MORENO IN UNIT AND IS AWARE. WILL REVIEW CHART AND PLAN OF CARE FOR THIS PT.
--- NOTE | 2021-04-25 | NUR ---
PT PLACED ON FENTANYL DRIP AT 25 MCG'S PER HOUR. PT NOTED TO HAVE SOME IMPROVEMENT ON COUGHING EPISODES AND VENT INTOLERANCE. PROPOFOL CONTINUES FOR SEDATION WELL PRECEDEX DRIP AT 1.2 MCG'S.
[2021-04-25 00:37] LABS: Triglycerides 100 mg/dL (30-160)
[2021-04-25 04:10] LABS: PCO2 Arterial 39.1 mmHg (35-45); pH Blood Arterial 7.46 (7.35-7.45)
[2021-04-25 04:11] LABS: PO2 Arterial 44.1 mmHg (80-100)
[2021-04-25 04:45] LABS: BASOPHILS ABSOLUTE AUTO 0.03 K/mm3 (0.00-0.23); BASOPHILS PERCENT AUTO 0 % (0-2); EOSINOPHILS ABSOLUTE AUTO 0.22 K/mm3 (0.00-0.68); EOSINOPHILS PERCENT AUTO 2 % (0-6); Hematocrit 31.3 % (33.0-51.0); Hemoglobin 10.5 g/dL (11.5-16.0); IMMATURE GRAN ABSOLUTE AUTO 0.17 K/mm3 (0.00-0.10); IMMATURE GRAN PERCENT AUTO 2 % (0-1); LYMPHOCYTES ABSOLUTE AUTO 0.39 K/mm3 (0.84-5.20); LYMPHOCYTES PERCENT AUTO 4 % (21-46); MONOCYTES ABSOLUTE AUTO 0.16 K/mm3 (0.16-1.47); MONOCYTES PERCENT AUTO 1 % (4-13); Mean Corpuscular HGB 29.3 pg (26.0-34.0); Mean Corpuscular HGB Conc 33.5 g/dL (31.5-36.5); Mean Corpuscular Volume 87 fL (80-100); Mean Platelet Volume 10.5 fL (9.1-12.4); NEUTROPHILS PERCENT AUTO 91 % (41-73); Platelet Count 195 K/mm3 (150-400); RDW Coefficient Variation 13.6 % (11.7-14.2); RDW Standard Deviation 43.3 fL (35.1-46.3); Red Blood Cell Count 3.58 M/mm3 (3.80-5.20); White Blood Cell Count 11.27 K/mm3 (4.00-11.30)
[2021-04-25 05:11] LABS: Anion Gap 8 mmol/L (6-16); Blood Urea Nitrogen 17 mg/dL (8-24); Bun/Creatinine Ratio 29.1 (12.0-20.0); CO2, Blood 25 mmol/L (21-32); Calcium, Blood 7.7 mg/dL (8.5-10.1); Chloride, Blood 104 mmol/L (98-108); Creatinine, Blood 0.58 mg/dL (0.40-1.00); Glomerular Filtration Rate >60 (60-); Glucose, Blood 131 mg/dL (70-99); Phosphorus, Blood 2.4 mg/dL (2.5-4.9); Potassium, Blood 3.6 mmol/L (3.5-5.5); Sodium, Blood 137 mmol/L (136-145)
--- NOTE | 2021-04-25 06:30 | NUR ---
AFTER PT PLACE TO FENTANYL DRIP, PT HAS FEWER EPISODES OF TACHYPNEA AND VENT INTOLERANCE. HAVE MEDICATED PT WITH ADDITIONAL 25 MCG'S FENTANYL PUSH WITH GOOD SUCCESS. PT WOULD SPORATICALLY HAVE COUGHING JAGS THAT WOULD INCREASE HER PEAK PRESSURES. WILL CONTINUE TO MONITOR PT, AND WILL REPORT OFF TO ONCOMING RN.
--- NOTE | 2021-04-25 07:42 | NUR ---
ASSUMED PT CARE AT 0700, PT TACHPNEIC, STACKING BREATHS, RATE OF 45-50, HIGH PEAK PRESSURES 40-50S, DESATING 80S. PT GIVEN 2MG ATIVAN IVP, FENTANYL 50MCG IVP, FENT GTT INCREASED TO 50MCG/HR. PROP AT 60, LEVO AT 8, PRECEDEX 1.4 AT ASSUMPTION OF CARE. ABLE TO GET SATS GREATER THAN 90% WITH INTERVENTIONS. MD MORENO INFORMED OF PT'S TENUOUS STATUS, RN REQUEST FOR PARALYTIC TO INCREASE COMPLIANCE WITH VENT AND DECREASE WOB. ORDER FOR KIRILL OBTAINED. SPUTUM CULTURE SENT. PLAN FOR CT OF CHEST WHEN PT MORE STABLE.
[2021-04-25 09:31] LABS: PCO2 Arterial 40.5 mmHg (35-45); PO2 Arterial 74.3 mmHg (80-100); pH Blood Arterial 7.42 (7.35-7.45)
--- NOTE | 2021-04-25 18:21 | NUR ---
PT INTUBATED, SEDATED; PT PARALYZED AT BEG OF SHIFT FOR VENT COMPLIANCE. PT TAKEN TO CT OF CHEST AT 1300 TO R/O PE, NEGATIVE FOR PT, ETT PULLED BACK 2 CM, ABLE TO TITRATE DOWN ON VENT SETTINGS THROUGHOUT SHIFT. AT END OF SHIFT PT VENT SETTINGS AC 26, 330, PEEP 10, FIO2 65% (DOWN FROM 100%), PT SATING 93% AND GREATER. PT TITRATING DOWN ON KIRILL PER MD MORENO'S REQUEST NOW AT 3MCG/KG/MIN DOWN FROM 8. GOAL TO GET PT ON PARALYTIC ON NOC SHIFT. PROP AT 30, PRECEDEX 1.4, FENTANYL AT 50 MCG/HR. LEVO AT 2MCG/KG/MIN DOWN FROM MAX OF 10 ON SHIFT. PT GIVEN 1 L NS BOLUS TODAY FOR LACTATE 2.3, STARTED ON DIFLUCAN IV FOR RESP CULTURE WITH CHEPE. GOOD UO. PT REPOSITIONED Q 2 HRS. TF REMAINS AT GOAL, NO S/SX INTOLERANCE. AFEBRILE THIS SHIFT. WILL REPORT OFF TO NOC SHIFT.
--- NOTE | 2021-04-25 20:00 | NUR ---
ASSUMED CARE OF PT AT 1915. REPORT RECEIVED. PT PRESENTS IN BED. INTUBATED: AC/VC 26, Tv 340, 6, 60 PERCENT FIO2. PT ON PROPOFOL FOR SEDATION AT 40 MCG'S/KG/MIN. WILL REVIEW CHART AND PLAN OF CARE FOR THIS PT.
[2021-04-26 04:08] LABS: BASOPHILS ABSOLUTE AUTO 0.01 K/mm3 (0.00-0.23); BASOPHILS PERCENT AUTO 0 % (0-2); EOSINOPHILS ABSOLUTE AUTO 0.22 K/mm3 (0.00-0.68); EOSINOPHILS PERCENT AUTO 3 % (0-6); Hematocrit 27.1 % (33.0-51.0); Hemoglobin 9.1 g/dL (11.5-16.0); IMMATURE GRAN ABSOLUTE AUTO 0.05 K/mm3 (0.00-0.10); IMMATURE GRAN PERCENT AUTO 1 % (0-1); LYMPHOCYTES ABSOLUTE AUTO 0.46 K/mm3 (0.84-5.20); LYMPHOCYTES PERCENT AUTO 6 % (21-46); MONOCYTES ABSOLUTE AUTO 0.11 K/mm3 (0.16-1.47); MONOCYTES PERCENT AUTO 1 % (4-13); Mean Corpuscular HGB 29.5 pg (26.0-34.0); Mean Corpuscular HGB Conc 33.6 g/dL (31.5-36.5); Mean Corpuscular Volume 88 fL (80-100); Mean Platelet Volume 10.2 fL (9.1-12.4); NEUTROPHILS ABSOLUTE AUTO 6.78 K/mm3 (1.96-9.15); NEUTROPHILS PERCENT AUTO 89 % (41-73); Platelet Count 155 K/mm3 (150-400); RDW Coefficient Variation 13.9 % (11.7-14.2); RDW Standard Deviation 44.9 fL (35.1-46.3); Red Blood Cell Count 3.08 M/mm3 (3.80-5.20); White Blood Cell Count 7.63 K/mm3 (4.00-11.30)
[2021-04-26 04:25] LABS: Alanine Aminotransfer (ALT/SGP 48 U/L (12-78); Albumin, Blood 1.1 g/dL (3.4-5.0); Albumin/Globulin Ratio 0.3 (0.8-1.8); Alk Phos 64 U/L (50-136); Anion Gap 2 mmol/L (6-16); Aspartate Aminotrans (AST/SGOT 25 U/L (12-37); Bilirubin, Total 0.4 mg/dL (0.1-1.0); Blood Urea Nitrogen 13 mg/dL (8-24); Bun/Creatinine Ratio 23.3 (12.0-20.0); CO2, Blood 29 mmol/L (21-32); Calcium, Blood 7.3 mg/dL (8.5-10.1); Chloride, Blood 107 mmol/L (98-108); Creatinine, Blood 0.56 mg/dL (0.40-1.00); Glomerular Filtration Rate >60 (60-); Glucose, Blood 136 mg/dL (70-99); Potassium, Blood 3.8 mmol/L (3.5-5.5); Sodium, Blood 138 mmol/L (136-145); Total Protein, Blood 5.1 g/dL (6.4-8.2)
--- NOTE | 2021-04-26 06:32 | NUR ---
PT CONTINUES WITH ROCURONIUM FOR PARALYSIS. HAVE BEEN ABLE TO BRING RATE TO 2 MCG/KG/MIN. PT HAS MAINTAINED > 90 PERCENT SATURATIONS. WILL CONTINUE TO MONITOR PT, AND WILL REPORT OFF TO ONCOMING RN.
--- NOTE | 2021-04-26 09:24 | NUR ---
ASSUMED PT CARE, PT ON KIRILL 2MCG/KG/MIN WITH TO4 4/4 AND PT WINCING/GRIMACING TO ANY TACTILE STIMULI. FENT INCREASED TO 50MCG/HR FOR COMFORT. DISCUSSED WITH MD MORENO PLAN TO OPTIMIZE ANALGESIA AND TURN ON KIRILL. KIRILL OFF AT 0915. PT DESATTING TO 85%, GIVEN 2 MG ATIVAN IV, PROP ADJUSTED FOR SEDATION. VENT SETTINGS 26, 330, PEEP 10, FI02 70. FIO2 INCREASED TO 85% TO ACHIEVE GOAL 89% AND GREATER. OGT PLACEMENT CONFIRMED WITH AIR AUSCULTATION AND DAILY XR. TF AT GOAL. DISCUSSED MIDODRINE FOR PT TO GET OFF LEVO. LEVO CURRENTLY AT 2MCG/KG/MIN. GOOD UO.
--- NOTE | 2021-04-26 11:21 | NUR ---
PT STARTED BACK ON KIRILL SECONDARY TO NOT TOLERATING VENT DESPITE SEDATION ADN PRN ATIVAN GIVEN. MD MORENO INFORMED.PT WAS DESATURATING TO 80S, STACKING BREATHS, IN DISTRESS.
--- NOTE | 2021-04-26 17:52 | NUR ---
MAJOR EVENTS THIS SHIFT: ATTEMPTED TO TAKE PT OF PARALYTIC (KIRILL), KIRILL OFF FOR 30-45 MIN AND DURING THAT TIME PT BECAME VERY TACHYPNEIC (STACKING BREATHS WITH RATE 35-50), OXYGEN DESATTED TO 85% (HAD TO INCREASE FI02 TO 100% DURING THIS TIME), PT TACHYCARDIC AND GRIMACING. INCREASED FENT GTT TO MCG, INCREASED PROP, AND GAVE 2MG ATIVAN IVP WITHOUT EFFECTIVE RESULTS AND ONGOING POOR VENT TOLERANCE. KIRILL RESTARTED AFTER SPEAKING WITH MD MORENO. AT END OF SHIFT VENT SETTINGS 26, 330, 10, 70%. KIRILL AT 6MCG/KG/MIN, FENT AT 50MCG/HR, PROP AT 35 MCG/KG/MIN, PRECEDEX 1.4. STARTED PT ON MIDODRINE, UNABLE TO WEAN OFF LEVO, BUT ABLE TO TITRATE DOWN TO 1MCG. GOOD UO. TF AT GOAL, RESIDUALS LESS THAN 20. PT REPOSITIONED Q 2 HRS ABLE. SOCRATES UPDATED AT BEGINNING AND END OF SHIFT.
--- NOTE | 2021-04-26 21:14 | NUR ---
PATIENT INTUBATED AND SEDATED AND PARALYZED. KIRILL 6 MCG, PRECEDEX 1.4 MCG, PROPOFOL 30 MCG AND FENTANYL 50 MCG. TRAIN OF 4 4/4, ETT WITH VENT AC VC 26, TV 330, PEEP 12, FIO2 70% SUCTIONING SCANT AMT OF CLEAR SECRETIONS. LEVOPHED FOR HYPOTENSION PLACED ON HOLD FROM [address] WITH PIVOT 1.5 AT GOAL RATE OF 35 CC/HR WITH 30 CC WATER Q 4HR.
[2021-04-27 04:35] LABS: BASOPHILS ABSOLUTE AUTO 0.01 K/mm3 (0.00-0.23); BASOPHILS PERCENT AUTO 0 % (0-2); EOSINOPHILS ABSOLUTE AUTO 0.04 K/mm3 (0.00-0.68); EOSINOPHILS PERCENT AUTO 1 % (0-6); Hematocrit 26.9 % (33.0-51.0); Hemoglobin 8.8 g/dL (11.5-16.0); IMMATURE GRAN ABSOLUTE AUTO 0.06 K/mm3 (0.00-0.10); IMMATURE GRAN PERCENT AUTO 1 % (0-1); LYMPHOCYTES ABSOLUTE AUTO 0.27 K/mm3 (0.84-5.20); LYMPHOCYTES PERCENT AUTO 5 % (21-46); MONOCYTES PERCENT AUTO 2 % (4-13); Mean Corpuscular HGB 28.7 pg (26.0-34.0); Mean Corpuscular HGB Conc 32.7 g/dL (31.5-36.5); Mean Corpuscular Volume 88 fL (80-100); Mean Platelet Volume 10.2 fL (9.1-12.4); NEUTROPHILS ABSOLUTE AUTO 4.66 K/mm3 (1.96-9.15); NEUTROPHILS PERCENT AUTO 91 % (41-73); Platelet Count 149 K/mm3 (150-400); RDW Coefficient Variation 13.8 % (11.7-14.2); Red Blood Cell Count 3.07 M/mm3 (3.80-5.20); White Blood Cell Count 5.14 K/mm3 (4.00-11.30)
[2021-04-27 05:04] LABS: Anion Gap 4 mmol/L (6-16); Blood Urea Nitrogen 15 mg/dL (8-24); Bun/Creatinine Ratio 31.3 (12.0-20.0); CO2, Blood 29 mmol/L (21-32); Calcium, Blood 7.8 mg/dL (8.5-10.1); Chloride, Blood 106 mmol/L (98-108); Creatinine, Blood 0.48 mg/dL (0.40-1.00); Glomerular Filtration Rate >60 (60-); Glucose, Blood 172 mg/dL (70-99); Sodium, Blood 139 mmol/L (136-145)
--- NOTE | 2021-04-27 06:51 | NUR ---
SUMMARY PATIENT REMAINS INTUBATED AND SEDATED. PROPOFOL 30 MCG, PRECEDEX 1.4 MCG, FENTANYL 50 MCG FOR SEDATION KIRILL 6 MCG FOR PARALYTIC TRAIN OF 4 4/4. VENT AC 26/330/12/70% BLOODY ORAL CARE DURING THE NIGHT. OG WITH PIVOT 1.5 AT GOAL RATE OF 35 CC/HR MIN RESIDUALS.
--- NOTE | 2021-04-27 08:54 | NUR ---
CARE OF PT ASSUMED AT 0700. PT SEDATED ON PROPOFOL AT 30MCG, PRECEDEX AT 1.4MCG AND FENT GTT AT 50MCG/HR. FOR VENT TOLERENCE. PT IS PARALYZED ON KIRILL AT 6MCG. PT IS ADEQUATELY PARALYZED, NO COUGH, SWALLOW, GAG, MOVEMENT OF EXT. PT IS NOT BREATHING OVER VENT, PT IS SYNCHRONIZED W VENT. SATS 91% ON AC/VC 26 330/45, FIO2 60%, PEEP 12. PT DOES NOT HAVE BIS MONITOR, WILL PRIOR. FINDING ONE. PT HYPOTENSIVE W MOST MAPS > 65. LASIX ORDERED, THIS DISCUSSED W , MAY NEED TO START LOW DOSE LEVOPHED. LUNGS SOUNDS CLEAR W GOOD AIR MOVEMENT. RESIDUALS MINIMAL, BT'S HYPOACTIVE, PT HAS NOT HAS BM IN DAYS, WILL GIVE ADDITIONAL BOWEL CARE MEDS TODAY.
--- NOTE | 2021-04-27 10:22 | NUR ---
DR JAIME AT BEDSIDE, FULL UPDATE GIVEN
--- NOTE | 2021-04-27 13:11 | NUR ---
KIRILL TITRATED DOWN TO 4.5MCG, TO4 2/4. PT REMAINS ADEQUATELY PARALYZED. BIS MONITOR PLACED, BIS READING 40'S.
--- NOTE | 2021-04-27 15:01 | NUR ---
Update 04/27/21: Settings - FiO2 60%. PEEP 12. SPO2 94%. Provided updates to patient's Mike. Discussed benefit of patient having visits from more often with palliative care. Plan to discuss care further with ICU team and palliative care this afternoon.
--- NOTE | 2021-04-27 17:39 | NUR ---
Spoke with Tanja at [facility] where pt. was living prior to admit. Provided updates. Tanja stated that she was advised by [facility] that she is on executive order and is not allowed to accept pt. back to facility at this time. I did explain to Tanja that the executive order usually means that patients can return to facility if appropriate, but facility is not able to accept new patients. She is extremely worried about her other residents. We will work towards getting patient into COVID unit when appropriate for discharge. She can then transition back to the [facility] when it is appropriate. Not yet ready for discharge.
--- NOTE | 2021-04-27 19:24 | NUR ---
PROPOFOL WAS INCREASED TO 35MCG FROM 30MCG BIS THIS EVENING WAS UP TO 60-70'S. PRECEDEX REMAINS AT 1.4MCG. KIRILL WAS TITRATED DOWN TO 3.5MCG, PT REMAINS ADEQUATELY PARALYZED. BP IMPROVED T/O DAY.
[2021-04-28 04:39] LABS: Hematocrit 26.7 % (33.0-51.0); Hemoglobin 8.8 g/dL (11.5-16.0); Mean Corpuscular HGB 28.9 pg (26.0-34.0); Mean Corpuscular Volume 88 fL (80-100); Mean Platelet Volume 10.9 fL (9.1-12.4); Platelet Count 207 K/mm3 (150-400); RDW Coefficient Variation 13.6 % (11.7-14.2); RDW Standard Deviation 43.5 fL (35.1-46.3); Red Blood Cell Count 3.04 M/mm3 (3.80-5.20); White Blood Cell Count 5.85 K/mm3 (4.00-11.30)
[2021-04-28 04:58] LABS: Albumin, Blood 1.1 g/dL (3.4-5.0); Anion Gap 6 mmol/L (6-16); Blood Urea Nitrogen 20 mg/dL (8-24); Bun/Creatinine Ratio 38.2 (12.0-20.0); CO2, Blood 32 mmol/L (21-32); Calcium, Blood 7.2 mg/dL (8.5-10.1); Chloride, Blood 101 mmol/L (98-108); Creatinine, Blood 0.52 mg/dL (0.40-1.00); Glomerular Filtration Rate >60 (60-); Glucose, Blood 87 mg/dL (70-99); Phosphorus, Blood 1.9 mg/dL (2.5-4.9); Potassium, Blood 3.8 mmol/L (3.5-5.5); Sodium, Blood 139 mmol/L (136-145)
[2021-04-28 05:08] LABS: BAND PERCENT MAN 12 % (0-8); BASOPHILS PERCENT MAN 0 % (0-2); EOSINOPHILS ABSOLUTE MAN 0.17 K/mm3 (0.00-0.68); EOSINOPHILS PERCENT MAN 3 % (0-6); LYMPHOCYTES ABSOLUTE MAN 0.23 K/mm3 (0.84-5.20); LYMPHOCYTES PERCENT MAN 4 % (21-46); MONOCYTES ABSOLUTE MAN 0.29 K/mm3 (0.16-1.47); MONOCYTES PERCENT MAN 5 % (4-13); NEUTROPHILS ABSOLUTE MAN 5.14 K/mm3 (1.96-9.15); SEG NEUTROPHILS PERCENT MAN 76 % (41-73); TOTAL CELLS COUNTED 100
--- NOTE | 2021-04-28 07:25 | NUR ---
Patient vented with sedation and paralytic agents infusing. TOF 4/4 on a amp of 10. Suctioned for minimal secrtion. During the shift her sbps stayed above 160. Fentanyl drip was increased to 100mcgs.. Repositioned from side to side for comfort.
--- NOTE | 2021-04-28 08:46 | NUR ---
CARE OF PT ASSUMED THIS AM AT 0700. PT HYPOTENSIVE W MAP <60. PT SEDATED AT 0700 W PROPOFOL AT 10MCG, PRECEDEX AT 1MCG AND FENT GTT AT 100MCG/HR. BIS 60'S. KIRILL AT 3.5MCG, PT TOLERATING VENT. PRECEDEX DROPPED TO 0.7MCG, BIS DROPPED TO 3MCG. LEVOPHED ORDERED TO BE AT BEDSIDE BUT NOT STARTED. AT 0830 PT'S BIS 90'S, PT HYPERTENSIVE, TACHYCARDIC 130-140. PT OPENS EYES AND SLIGHTLY MOVES HER HEAD BUT UNABLE TO NOD OR FOLLOW SIMPLE COMMANDS. RESP 28, BUT OTHERWISE SYNCHRONIZED W VENT. KIRILL LEFT AT 3MCG. PROPOFOL INCREASED TO 30, PRECEDEX INCREASED BACK TO 1MCG, AND PT GIVEN 2MG ATIVAN PT REMAINED W HTN AND TACHYCARDIA. HR NOW 110-120, BP IMPROVED, BIS 40'S. PT TEMP 100.6. SATS 94-99% ON AC/VC 26 330/45 60% PEEP 12.
--- NOTE | 2021-04-28 09:56 | NUR ---
DR JAIME AT BEDSIDE W DR SANCHEZ. FULL UPDATE GIVEN. PLAN: DC PRECEDEX, STRAT VERSED GTT. DC FENTANYL, START DILAUDID. ONCE PT IS ADEQUATELY SEDATED WILL ATTEMPT TO TURN OFF KIRILL AND PLACE PT ON SPONT TOLERATED. LACTULOSE WILL BE ORDERED TO FACILITATE BM.
--- NOTE | 2021-04-28 10:44 | NUR ---
PRECEDEX STOPPED. VERSED GTT STARTED AT 1MG/HR. BOWEL CARE GIVEN, SEE EMAR.
--- NOTE | 2021-04-28 12:35 | NUR ---
PT'S BIS 70'S+. PT GRIMACING. VERSED GTT INCREASED TO 6MG/HR, PROPOFOL INCREASED TO 40MCG. TO4 4/4. PT IS SYNCHRONIZED W VENT MORE OFTEN THAN NOT, OCC INCREASED PEAK PRESSURES. PT ETT SECUREMENT DEVICE TO BE REPLACED PORTION IS HITTING RIGHT AT TEETH AND LIPS ARE TENDER AND BRUISED. RT NOTIFIED.
--- NOTE | 2021-04-28 15:44 | NUR ---
POWERHOUSE ELECTRICIAN APPRENTICE DC'D, CLEARED AND WASTED W ALY FENG RN. KIRILL PLACED ON STANDBY. WILL ATTEMPT TO PLACE PT ON SPONT IN ONE HOUR TOLERATED.
--- NOTE | 2021-04-28 16:31 | NUR ---
PT WIDE AWAKE ON VENT, EYES OPEN, SOME TRACKING, UNABLE TO MOVE LIMBS OR NOD HEAD. HEART RATE 130-150 SINUS W SOME ECTOPY, HYPERTENSIVE, RESP 29 APPEAR LABORED ON 40% FIO2 PEEP 10. DILAUDID 1MG GIVEN FOR ADJUNCT SEDATION. VERSED AT 5MG/HR, PROPOFOL AT 30MCG. SATS 94-96%.
--- NOTE | 2021-04-28 16:53 | NUR ---
RT PLACED PT ON SPONT BREATHING TRIAL 12/10 40%. SATS >90%, PT IS TACHYCARDIC W ECTOPY 110-120, SLIGHTLY HYPERTENSIVE, W LABORED RESP. WILL MONIOR VERY CLOSELY.
--- NOTE | 2021-04-28 17:56 | NUR ---
BIS 90'S, VERSED GTT INCREASED TO 6MG/HR. PT REMAINS TACHYCARDIC AT 110-120, AND HYPERTENSIVE, BUT RESP ARE MORE RELAXED. SATS 97% ON SPONT 5/5 AT 40% fio2.
--- NOTE | 2021-04-28 18:09 | NUR ---
SHORTLY AFTER LAST NOTE, PT'S SATS DROPPED TO 75%. RT CALLED. VENT PLACED BACK TO PREVIOUS SETTINGS. SATS IMMEDIATELY RAISED TO 94%.
--- NOTE | 2021-04-28 18:43 | NUR ---
PT'S GIVEN UPDATE. DR JAIME UPDATED.
[2021-04-29 04:43] LABS: BASOPHILS ABSOLUTE AUTO 0.01 K/mm3 (0.00-0.23); BASOPHILS PERCENT AUTO 0 % (0-2); EOSINOPHILS ABSOLUTE AUTO 0.19 K/mm3 (0.00-0.68); EOSINOPHILS PERCENT AUTO 3 % (0-6); Hematocrit 24.2 % (33.0-51.0); Hemoglobin 8.5 g/dL (11.5-16.0); Mean Corpuscular HGB 30.9 pg (26.0-34.0); Mean Corpuscular HGB Conc 35.1 g/dL (31.5-36.5); Mean Corpuscular Volume 88 fL (80-100); Mean Platelet Volume 10.4 fL (9.1-12.4); NRBC ABSOLUTE 0.03 K/mm3 (0.00-0.02); NRBC Auto 0.5 /100 WBC (0.0-0.2); Platelet Count 218 K/mm3 (150-400); RDW Standard Deviation 44.8 fL (35.1-46.3); Red Blood Cell Count 2.75 M/mm3 (3.80-5.20); White Blood Cell Count 5.85 K/mm3 (4.00-11.30)
[2021-04-29 05:01] LABS: Albumin, Blood 1.1 g/dL (3.4-5.0); Anion Gap 5 mmol/L (6-16); Blood Urea Nitrogen 17 mg/dL (8-24); Bun/Creatinine Ratio 33.7 (12.0-20.0); CO2, Blood 31 mmol/L (21-32); Calcium, Blood 6.7 mg/dL (8.5-10.1); Chloride, Blood 102 mmol/L (98-108); Creatinine, Blood 0.51 mg/dL (0.40-1.00); Glomerular Filtration Rate >60 (60-); Glucose, Blood 115 mg/dL (70-99); IMMATURE GRAN ABSOLUTE AUTO 0.13 K/mm3 (0.00-0.10); IMMATURE GRAN PERCENT AUTO 2 % (0-1); LYMPHOCYTES ABSOLUTE AUTO 0.69 K/mm3 (0.84-5.20); LYMPHOCYTES PERCENT AUTO 12 % (21-46); MONOCYTES ABSOLUTE AUTO 0.19 K/mm3 (0.16-1.47); MONOCYTES PERCENT AUTO 3 % (4-13); NEUTROPHILS ABSOLUTE AUTO 4.64 K/mm3 (1.96-9.15); NEUTROPHILS PERCENT AUTO 79 % (41-73); Phosphorus, Blood 1.9 mg/dL (2.5-4.9); Potassium, Blood 3.5 mmol/L (3.5-5.5); Sodium, Blood 138 mmol/L (136-145)
--- NOTE | 2021-04-29 07:15 | NUR ---
Assumed care of pt at 0700 with Arianne LIMA.
--- NOTE | 2021-04-29 12:00 | NUR ---
Difficulty ventilating patient. Pt requiring increased PEEP to maintain SpO2 90% or greater. With increased PEEP, patient has high peak pressures and sometimes full breath volume is not delivered. Discussed with Dr German. Decision made by provider to restart paralytic. Plan to increase sedating medications as well as restart paralytic. Vent settings ACVC 26/350/8/100%.
--- NOTE | 2021-04-29 14:00 | NUR ---
Pt responded well to paralytic, as well as IV ativan and dialudid. Able to titrate FiO2 down.
--- NOTE | 2021-04-29 14:57 | NUR ---
Per chart review with Dr. Najera, pt is improving but no discharge plan at this time. -jg
--- NOTE | 2021-04-29 18:41 | NUR ---
Echocardiogram completed.
--- NOTE | 2021-04-29 18:51 | NUR ---
SHIFT SUMMARY Neuro: Receiving propofol at 50 mcg/kg/min. Versed 6 mg/hr. BIS 40-60. Rocuronium 6 mcg/kg/min. TOF 2/4. Unresponsive. Cough and gag absent. PERRL. No movement noted to extremities. Musculoskeletal: Mobility limited by cords, lines, tubes, intubation, and sedation. Pt receiving paralytic for ventilator tolerance. Respiratory: 8.0 cm ETT remains at 23 cm at teeth placement. Vent settings ACVC- 26/350/8/55%. Actual RR 26. Tidal volumes approx 350 ml. SpO2 92%. No sputum suctioned from ETT this shift. Lungs diminished t/o. Cardiac: SR per monitor. BP stable. 1+ edema BUE and BLE. Capillary refill less than 3 seconds BUE and BLE. 2+ pulses radial, pedal, and posttibial. Unremarkable heart sounds. Pt has PICC to E. GI: OG tube with feeds and flushes per orders. Hypoactive BT. No signs of abd tenderness with palpation. : Parker catheter in place with excellent output of clear, yellow urine. Skin: Dusky. Otherwise C/D/I Psychosocial: Unable to assess pt due to intubation and sedation. This RN did not have contact with pt's family today. Dr German updated pt's spouse on plan of care. Will continue to closely monitor until care handoff and bedside report with oncoming RN.
[2021-04-30 04:35] LABS: BASOPHILS ABSOLUTE AUTO 0.01 K/mm3 (0.00-0.23); BASOPHILS PERCENT AUTO 0 % (0-2); EOSINOPHILS ABSOLUTE AUTO 0.09 K/mm3 (0.00-0.68); EOSINOPHILS PERCENT AUTO 1 % (0-6); Hematocrit 27.6 % (33.0-51.0); Hemoglobin 9.2 g/dL (11.5-16.0); IMMATURE GRAN ABSOLUTE AUTO 0.28 K/mm3 (0.00-0.10); IMMATURE GRAN PERCENT AUTO 4 % (0-1); LYMPHOCYTES ABSOLUTE AUTO 0.78 K/mm3 (0.84-5.20); LYMPHOCYTES PERCENT AUTO 12 % (21-46); MONOCYTES ABSOLUTE AUTO 0.26 K/mm3 (0.16-1.47); MONOCYTES PERCENT AUTO 4 % (4-13); Mean Corpuscular HGB 29.3 pg (26.0-34.0); Mean Corpuscular HGB Conc 33.3 g/dL (31.5-36.5); Mean Corpuscular Volume 88 fL (80-100); Mean Platelet Volume 10.2 fL (9.1-12.4); NEUTROPHILS ABSOLUTE AUTO 5.12 K/mm3 (1.96-9.15); NEUTROPHILS PERCENT AUTO 78 % (41-73); NRBC ABSOLUTE 0.02 K/mm3 (0.00-0.02); NRBC Auto 0.3 /100 WBC (0.0-0.2); Platelet Count 253 K/mm3 (150-400); RDW Standard Deviation 44.6 fL (35.1-46.3); Red Blood Cell Count 3.14 M/mm3 (3.80-5.20); White Blood Cell Count 6.54 K/mm3 (4.00-11.30)
[2021-04-30 04:53] LABS: Albumin, Blood 1.4 g/dL (3.4-5.0); Anion Gap 7 mmol/L (6-16); Blood Urea Nitrogen 23 mg/dL (8-24); CO2, Blood 32 mmol/L (21-32); Calcium, Blood 7.7 mg/dL (8.5-10.1); Chloride, Blood 101 mmol/L (98-108); Creatinine, Blood 0.59 mg/dL (0.40-1.00); Glomerular Filtration Rate >60 (60-); Glucose, Blood 153 mg/dL (70-99); Phosphorus, Blood 3.3 mg/dL (2.5-4.9); Potassium, Blood 3.5 mmol/L (3.5-5.5); Sodium, Blood 140 mmol/L (136-145)
--- NOTE | 2021-04-30 06:48 | NUR ---
Clinically patient was unstable during the night. Her heart rate went as high as 200. Cardizem drip started also her oxygenation was poor. and saturation as low as in the 70's. Fio2 on the vent was turned up to 100% for about 2 hours then decreased to 75%. her saturation remained low and so the FIO2 was increased again to 90%. Patient's saturation is 92% presently. All sedation and paralytic drips were maintained.
--- NOTE | 2021-04-30 11:04 | NUR ---
per chart review with Dr. Najera, pt is doing well but not stable to discharge. -sachab
--- NOTE | 2021-05-01 03:06 | NUR ---
DR. MEDINA NOTIFIED OF TITRATION/WEAN OF CARDIZEM. ORDER STATES TO START CARDIZEM CD, BUT PATIENT HAS OGT AND CARDIZEM CD IS UNABLE TO BE CRUSHED. PHARMACY RECOMMENDATIONS ARE 30MG Q6 PO . PER DR. MEDINA, THESE RECOMMENDATIONS ARE OKAY. PLACE ORDER.
[2021-05-01 03:46] LABS: BASOPHILS ABSOLUTE AUTO 0.03 K/mm3 (0.00-0.23); BASOPHILS PERCENT AUTO 0 % (0-2); EOSINOPHILS ABSOLUTE AUTO 0.24 K/mm3 (0.00-0.68); EOSINOPHILS PERCENT AUTO 3 % (0-6); Hemoglobin 8.2 g/dL (11.5-16.0); IMMATURE GRAN ABSOLUTE AUTO 0.54 K/mm3 (0.00-0.10); IMMATURE GRAN PERCENT AUTO 7 % (0-1); LYMPHOCYTES ABSOLUTE AUTO 0.85 K/mm3 (0.84-5.20); LYMPHOCYTES PERCENT AUTO 11 % (21-46); MONOCYTES ABSOLUTE AUTO 0.37 K/mm3 (0.16-1.47); MONOCYTES PERCENT AUTO 5 % (4-13); Mean Corpuscular HGB 29.1 pg (26.0-34.0); Mean Corpuscular HGB Conc 32.8 g/dL (31.5-36.5); Mean Corpuscular Volume 89 fL (80-100); Mean Platelet Volume 10.2 fL (9.1-12.4); NEUTROPHILS ABSOLUTE AUTO 5.44 K/mm3 (1.96-9.15); NEUTROPHILS PERCENT AUTO 73 % (41-73); NRBC ABSOLUTE 0.04 K/mm3 (0.00-0.02); NRBC Auto 0.5 /100 WBC (0.0-0.2); Platelet Count 355 K/mm3 (150-400); RDW Coefficient Variation 14.2 % (11.7-14.2); RDW Standard Deviation 45.8 fL (35.1-46.3); Red Blood Cell Count 2.82 M/mm3 (3.80-5.20); White Blood Cell Count 7.47 K/mm3 (4.00-11.30)
[2021-05-01 04:05] LABS: BAND PERCENT MAN 4 % (0-8); BASOPHILS PERCENT MAN 0 % (0-2); EOSINOPHILS ABSOLUTE MAN 0.22 K/mm3 (0.00-0.68); EOSINOPHILS PERCENT MAN 3 % (0-6); LYMPHOCYTES ABSOLUTE MAN 0.74 K/mm3 (0.84-5.20); LYMPHOCYTES PERCENT MAN 10 % (21-46); METAMYELOCYTE ABSOLUTE MAN 0.07 K/mm3 (0.00-0.00); METAMYELOCYTE PERCENT MAN 1 % (0-0); MONOCYTES ABSOLUTE MAN 0.44 K/mm3 (0.16-1.47); MONOCYTES PERCENT MAN 6 % (4-13); NEUTROPHILS ABSOLUTE MAN 5.97 K/mm3 (1.96-9.15); SEG NEUTROPHILS PERCENT MAN 76 % (41-73); TOTAL CELLS COUNTED 100
[2021-05-01 04:07] LABS: Albumin, Blood 1.2 g/dL (3.4-5.0); Anion Gap 4 mmol/L (6-16); Blood Urea Nitrogen 22 mg/dL (8-24); Bun/Creatinine Ratio 39.3 (12.0-20.0); CO2, Blood 35 mmol/L (21-32); Calcium, Blood 7.9 mg/dL (8.5-10.1); Chloride, Blood 100 mmol/L (98-108); Creatinine, Blood 0.56 mg/dL (0.40-1.00); Glomerular Filtration Rate >60 (60-); Glucose, Blood 104 mg/dL (70-99); Phosphorus, Blood 2.6 mg/dL (2.5-4.9); Potassium, Blood 3.9 mmol/L (3.5-5.5); Sodium, Blood 139 mmol/L (136-145)
--- NOTE | 2021-05-01 06:55 | NUR ---
END OF SHIFT SUMMARY: PATIENT INTERMITTENTLY OFF LEVO GTT. DECREASED ROCURONIUM PARALYTIC PER TITRATION ORDER. CARDIZEM GTT OFF. PO ORDERED. FARHAD MONROY RN ASSUMED CARE FOR VITAL SIGNS, I/O, TURNS, ORAL CARE, BATHS/CLARK CARE AND MED PASSES. OTHERWISE FURS SALESPERSON ASSUMED CARE FOR PRIMARY RN.
--- NOTE | 2021-05-01 14:07 | NUR ---
VM left for to inform he is able to come in and visit between 1-3 today. I did not reach him in person. EMR reviewed and case conferenced with care providers for current status, concerns and plan of care.
--- NOTE | 2021-05-01 18:23 | NUR ---
PT UNABLE TO TOLERATE WEANING OF KIRILL. BECAME TACHYPNIC AT KIRILL 1.5. KIRILL INCREASED TO 5, PROPOFOL TO 50. PT REMAINING TACHYPNIC. ALL 3 LINES TO LEFT ARM PULL BLOOD, FLUSH WELL AND NO EDMEA TO SITE OR BEHIND THE ARM.
--- NOTE | 2021-05-01 20:24 | NUR ---
Assumed care at 1900. Patient vented. At 1999 she was promed and Levophed drip increased from 2mcgs to 3. No distress noted.
[2021-05-02 04:53] LABS: BASOPHILS ABSOLUTE AUTO 0.04 K/mm3 (0.00-0.23); BASOPHILS PERCENT AUTO 0 % (0-2); EOSINOPHILS ABSOLUTE AUTO 0.72 K/mm3 (0.00-0.68); EOSINOPHILS PERCENT AUTO 8 % (0-6); Hematocrit 25.6 % (33.0-51.0); Hemoglobin 8.5 g/dL (11.5-16.0); IMMATURE GRAN ABSOLUTE AUTO 0.52 K/mm3 (0.00-0.10); IMMATURE GRAN PERCENT AUTO 6 % (0-1); LYMPHOCYTES ABSOLUTE AUTO 0.82 K/mm3 (0.84-5.20); LYMPHOCYTES PERCENT AUTO 9 % (21-46); MONOCYTES ABSOLUTE AUTO 0.28 K/mm3 (0.16-1.47); MONOCYTES PERCENT AUTO 3 % (4-13); Mean Corpuscular HGB 29.8 pg (26.0-34.0); Mean Corpuscular HGB Conc 33.2 g/dL (31.5-36.5); Mean Corpuscular Volume 90 fL (80-100); Mean Platelet Volume 9.8 fL (9.1-12.4); NEUTROPHILS ABSOLUTE AUTO 6.97 K/mm3 (1.96-9.15); NEUTROPHILS PERCENT AUTO 75 % (41-73); NRBC ABSOLUTE 0.06 K/mm3 (0.00-0.02); NRBC Auto 0.6 /100 WBC (0.0-0.2); Platelet Count 380 K/mm3 (150-400); RDW Coefficient Variation 14.6 % (11.7-14.2); RDW Standard Deviation 46.5 fL (35.1-46.3); Red Blood Cell Count 2.85 M/mm3 (3.80-5.20); White Blood Cell Count 9.35 K/mm3 (4.00-11.30)
[2021-05-02 05:10] LABS: Albumin, Blood 1.2 g/dL (3.4-5.0); Anion Gap 6 mmol/L (6-16); Blood Urea Nitrogen 14 mg/dL (8-24); Bun/Creatinine Ratio 28.8 (12.0-20.0); CO2, Blood 32 mmol/L (21-32); Calcium, Blood 7.5 mg/dL (8.5-10.1); Chloride, Blood 101 mmol/L (98-108); Creatinine, Blood 0.49 mg/dL (0.40-1.00); Glomerular Filtration Rate >60 (60-); Glucose, Blood 102 mg/dL (70-99); Phosphorus, Blood 3.9 mg/dL (2.5-4.9); Potassium, Blood 3.5 mmol/L (3.5-5.5); Sodium, Blood 139 mmol/L (136-145)
[2021-05-02 05:16] LABS: BAND PERCENT MAN 7 % (0-8); BASOPHILS PERCENT MAN 0 % (0-2); EOSINOPHILS ABSOLUTE MAN 1.12 K/mm3 (0.00-0.68); EOSINOPHILS PERCENT MAN 12 % (0-6); LYMPHOCYTES ABSOLUTE MAN 0.46 K/mm3 (0.84-5.20); LYMPHOCYTES PERCENT MAN 5 % (21-46); METAMYELOCYTE ABSOLUTE MAN 0.56 K/mm3 (0.00-0.00); METAMYELOCYTE PERCENT MAN 6 % (0-0); MONOCYTES ABSOLUTE MAN 0.18 K/mm3 (0.16-1.47); MONOCYTES PERCENT MAN 2 % (4-13); MYELOCYTE ABSOLUTE MAN 0.18 K/mm3 (0.00-0.00); MYELOCYTE PERCENT MAN 2 % (0-0); NEUTROPHILS ABSOLUTE MAN 6.82 K/mm3 (1.96-9.15); SEG NEUTROPHILS PERCENT MAN 66 % (41-73); TOTAL CELLS COUNTED 100
--- NOTE | 2021-05-02 06:48 | NUR ---
Patient remained prone. No acute clinical changes. Her head was repositioned every 2 hours. Suctioned for thick brown secretion. Will continue monitor.
--- NOTE | 2021-05-02 17:01 | NUR ---
Case conferene with in ICU today. He has been keeping updated. Pt's mom came in for a very brief visit during limited visiting hours today. Family to make decision on goals of care in the next day or so per
--- NOTE | 2021-05-02 20:03 | NUR ---
ASSUMED CARE OF PT AT 190, REPORT RECEIVED FROM LUIZA LIMA. PT INTUBATED AND SEDATED. VENT SETTINGS ACPS 20/10 FIO2 65% RR 28. SPO2 94%. PT PRONED AT 1999. LUNGS CLEAR T/O. HYPOACTIVE BOWEL TONES. ROCURONIUM AT 8 MCG/KG/MIN, VERSED AT 2 MG/HR, LEVOPHED AT 2 MCG/MIN, AND PROPOFOL AT 40 MCG/KG/MIN. BIS READING 44, TOF 3/4. OG WITH TF VHP AT GOAL RATE OF 25 ML/HR WITH 30 Q4H WATER FLUSHES. CLARK DRAINING CLEAR YELLOW URINE TO GRAVITY.
--- NOTE | 2021-05-03 00:03 | NUR ---
NO CHANGE FROM PREVIOUS ASSESSMENT. BIS READING 43, TOF 3/4. PROPOFOL CONTINUES AT 40 MCG/KG/MIN, VERSED AT 2 MG/HR, KIRILL AT 8 MCG/KG/MIN, LEVO DECREASED TO 1 MCG/MIN.
[2021-05-03 04:36] LABS: BASOPHILS ABSOLUTE AUTO 0.03 K/mm3 (0.00-0.23); BASOPHILS PERCENT AUTO 0 % (0-2); EOSINOPHILS ABSOLUTE AUTO 0.59 K/mm3 (0.00-0.68); EOSINOPHILS PERCENT AUTO 9 % (0-6); Hematocrit 27.2 % (33.0-51.0); Hemoglobin 8.6 g/dL (11.5-16.0); IMMATURE GRAN ABSOLUTE AUTO 0.28 K/mm3 (0.00-0.10); IMMATURE GRAN PERCENT AUTO 4 % (0-1); LYMPHOCYTES ABSOLUTE AUTO 0.58 K/mm3 (0.84-5.20); LYMPHOCYTES PERCENT AUTO 9 % (21-46); MONOCYTES ABSOLUTE AUTO 0.22 K/mm3 (0.16-1.47); MONOCYTES PERCENT AUTO 3 % (4-13); Mean Corpuscular HGB Conc 31.6 g/dL (31.5-36.5); Mean Corpuscular Volume 92 fL (80-100); Mean Platelet Volume 9.4 fL (9.1-12.4); NEUTROPHILS PERCENT AUTO 75 % (41-73); NRBC ABSOLUTE 0.02 K/mm3 (0.00-0.02); NRBC Auto 0.3 /100 WBC (0.0-0.2); Platelet Count 369 K/mm3 (150-400); RDW Coefficient Variation 14.8 % (11.7-14.2); RDW Standard Deviation 49.1 fL (35.1-46.3); Red Blood Cell Count 2.97 M/mm3 (3.80-5.20)
[2021-05-03 04:58] LABS: Albumin, Blood 1.2 g/dL (3.4-5.0); Anion Gap 3 mmol/L (6-16); Blood Urea Nitrogen 11 mg/dL (8-24); Bun/Creatinine Ratio 27.5 (12.0-20.0); CO2, Blood 33 mmol/L (21-32); Calcium, Blood 8.2 mg/dL (8.5-10.1); Chloride, Blood 105 mmol/L (98-108); Glomerular Filtration Rate >60 (60-); Glucose, Blood 100 mg/dL (70-99); Magnesium, Blood 2.5 mg/dL (1.6-2.4); Phosphorus, Blood 3.4 mg/dL (2.5-4.9); Potassium, Blood 3.4 mmol/L (3.5-5.5); Sodium, Blood 141 mmol/L (136-145)
--- NOTE | 2021-05-03 05:58 | NUR ---
SHIFT SUMMARY PT REMAINS INTUBATED AND SEDATED/PARALYZED. VENT SETTINGS CHANGED THIS SHIFT TO ACPS 22/10 75% FIO2. PT REMAINS UNRESPONSIVE T/O SHIFT. HR 80'S SINUS ON MONITOR, SBP 100'S. LEVOPHED CURRENTLY ON STANDBY. PROPOFOL INFUSING AT 40 MCG/KG/MIN, KIRILL AT 8 MCG/KG/MIN, VERSED AT 2 MG/HR. CLARK DRAINING DARK YELLOW URINE TO GRAVITY. TF VHP CONTINUES AT GOAL RATE OF 25 ML/HR WITH 30 Q4H WATER FLUSHES. LUNGS CLEAR T/O, SCANT SECRETIONS VIA ETT. BIS READING 40'S, TO4 3/4.
--- NOTE | 2021-05-03 07:15 | NUR ---
PT CARE ASSUMED AFTER OR FIRST ASSIST REGISTERED NURSE RN REPORT. PT PRONE. RED AREA NOTED TO LEFT CHIN, OPEN AREA. REPOSITIONED AND CLEANED.
--- NOTE | 2021-05-03 17:26 | NUR ---
PT FAMILY STATES THEY INTEND TO MAKE COMFORT CARE TOMORROW.
--- NOTE | 2021-05-03 19:25 | NUR ---
ASSUMED CARE OF PT AT 1900, REPORT RECEIVED FROM LUIZA LIMA. PT REMAINS INTUBATED AND SEDATED/PARALYZED. UNRESPONSIVE. VENT SETTINGS ACPS 22/10 FIO2 75% RATE 28. SPO2 97%, HR 60'S SINUS ON MONITOR, SBP WITH MAP >65 ON 1 MCG/MIN OF LEVOPHED. PROPOFOL AT 40 MCG/KG/MIN, KIRILL AT 8 MCG/KG/MIN, VERSED AT 2 MG/HR. LUNGS CLEAR WITH DIM BASES. OG WITH TF VHP RUNNING AT GOAL RATE OF 25 ML/HR WITH 30 Q4H WATER FLUSHES. BOWEL TONES ACTIVE.
[2021-05-04 04:20] LABS: BASOPHILS ABSOLUTE AUTO 0.03 K/mm3 (0.00-0.23); BASOPHILS PERCENT AUTO 0 % (0-2); EOSINOPHILS ABSOLUTE AUTO 0.01 K/mm3 (0.00-0.68); EOSINOPHILS PERCENT AUTO 0 % (0-6); Hematocrit 27.7 % (33.0-51.0); Hemoglobin 8.7 g/dL (11.5-16.0); IMMATURE GRAN ABSOLUTE AUTO 0.37 K/mm3 (0.00-0.10); IMMATURE GRAN PERCENT AUTO 5 % (0-1); LYMPHOCYTES ABSOLUTE AUTO 0.67 K/mm3 (0.84-5.20); LYMPHOCYTES PERCENT AUTO 9 % (21-46); MONOCYTES ABSOLUTE AUTO 0.25 K/mm3 (0.16-1.47); MONOCYTES PERCENT AUTO 4 % (4-13); Mean Corpuscular HGB 28.5 pg (26.0-34.0); Mean Corpuscular HGB Conc 31.4 g/dL (31.5-36.5); Mean Corpuscular Volume 91 fL (80-100); Mean Platelet Volume 9.8 fL (9.1-12.4); NEUTROPHILS ABSOLUTE AUTO 5.85 K/mm3 (1.96-9.15); NEUTROPHILS PERCENT AUTO 82 % (41-73); NRBC ABSOLUTE 0.03 K/mm3 (0.00-0.02); NRBC Auto 0.4 /100 WBC (0.0-0.2); Platelet Count 475 K/mm3 (150-400); RDW Standard Deviation 47.7 fL (35.1-46.3); Red Blood Cell Count 3.05 M/mm3 (3.80-5.20); White Blood Cell Count 7.18 K/mm3 (4.00-11.30)
[2021-05-04 04:35] LABS: Anion Gap 3 mmol/L (6-16); Blood Urea Nitrogen 13 mg/dL (8-24); Bun/Creatinine Ratio 30.6 (12.0-20.0); CO2, Blood 33 mmol/L (21-32); Calcium, Blood 8.7 mg/dL (8.5-10.1); Chloride, Blood 105 mmol/L (98-108); Creatinine, Blood 0.43 mg/dL (0.40-1.00); Glomerular Filtration Rate >60 (60-); Glucose, Blood 134 mg/dL (70-99); Magnesium, Blood 2.4 mg/dL (1.6-2.4); Phosphorus, Blood 2.2 mg/dL (2.5-4.9); Potassium, Blood 4.1 mmol/L (3.5-5.5); Sodium, Blood 141 mmol/L (136-145)
--- NOTE | 2021-05-04 06:35 | NUR ---
SHIFT SUMMARY UNEVENTFUL SHIFT, PT REMAINS INTUBATED AND SEDATED/PARALYZED. VENT SETTINGS UNCHANGED, CONTINUE AT ACPS 22/10 75% FIO2 RR 28. KIRILL INFUSING AT 8 MCG/KG, VERSED AT 2 MG/HR, PROPOFOL AT 40 MCG/KG, AND LEVO CURRENTLY ON STANDBY. PT HAD ONE BM THIS SHIFT, BROWN LIQUID MEDIUM IN SIZE. LUNGS CLEAR WITH DIM BASES. SCANT AMOUNT OF THICK WHITE SECRETIONS VIA ETT, SMALL AMOUNT ORALLY.
--- NOTE | 2021-05-04 13:31 | NUR ---
ALL DRIPS TURNED OFF AT 1310. EXTUBATION AT 1319 PER RT TO NRB AT 15L PER MD IN ROOM.
--- NOTE | 2021-05-04 13:38 | NUR ---
Case conf note: Update received from ICU nursing agency manager this am and again this afternoon re: family request and coordination of withdrawal of life support this afternoon per Dr Celeste Decker, who will be at the bedside. Pal [facility] services not requested but we will remain available for support and assist as needed.
--- NOTE | 2021-05-04 15:32 | NUR ---
WASTED 73ML VERSED WITH KAZ LIMA
--- NOTE | 2021-05-04 15:37 | NUR ---
PT BODY WITH HOME STAFF.
== END 2021-05-04 15:47 | DRG 207 ==
LOC: ER 09:39 → ICUE 12:12 → ERHOLD 12:12 → PCU 12:12 → MEDS 15:41 → SURS 04-09 17:15 → PCU 04-15 04:40 → ICUE 04-17 12:39
PROVIDERS: Emergency Medicine; Family Medicine; Hospitalist; Internal Medicine; Internal Medicine Critical Care Medicine; ADMIT Internal Medicine
PROC: 8E0ZXY6 Isolation (ICD-10-PCS; 2021-04-08)
PROC: XW033E5 Introduction of Remdesivir Anti-infective into Peripheral Vein, Percutaneous Approach, New Technology Group 5 (ICD-10-PCS; 2021-04-08)
PROC: 02HV33Z Insertion of Infusion Device into Superior Vena Cava, Percutaneous Approach (ICD-10-PCS; 2021-04-08)
PROC: 3E0336Z Introduction of Nutritional Substance into Peripheral Vein, Percutaneous Approach (ICD-10-PCS; 2021-04-08)
PROC: 5A09457 Assistance with Respiratory Ventilation, 24-96 Consecutive Hours, Continuous Positive Airway Pressure (ICD-10-PCS; 2021-04-08)
PROC: 5A0935A Assistance with Respiratory Ventilation, Less than 24 Consecutive Hours, High Flow/Velocity Cannula (ICD-10-PCS; 2021-04-13)
PROC: 5A1955Z Respiratory Ventilation, Greater than 96 Consecutive Hours (ICD-10-PCS; principal; 2021-04-17)
PROC: 0BH18EZ Insertion of Endotracheal Airway into Trachea, Via Natural or Artificial Opening Endoscopic (ICD-10-PCS; 2021-04-17)
DX: U07.1 COVID-19 (principal); J96.01 Acute respiratory failure with hypoxia; J12.82 Pneumonia due to coronavirus disease 2019; E46 Unspecified protein-calorie malnutrition; E87.3 Alkalosis; F05 Delirium due to known physiological condition; F11.20 Opioid dependence, uncomplicated; F41.8 Other specified anxiety disorders; Z51.5 Encounter for palliative care; M54.9 Dorsalgia, unspecified; E78.5 Hyperlipidemia, unspecified; Z66 Do not resuscitate; E66.3 Overweight; D64.9 Anemia, unspecified; G89.4 Chronic pain syndrome; E83.39 Other disorders of phosphorus metabolism; E87.6 Hypokalemia; E83.42 Hypomagnesemia; E78.1 Pure hyperglyceridemia; R73.9 Hyperglycemia, unspecified; T38.0X5A Adverse effect of glucocorticoids and synthetic analogues, initial encounter; Z88.5 Allergy status to narcotic agent; Z88.8 Allergy status to other drugs, medicaments and biological substances; Z91.018 Allergy to other foods; Z98.890 Other specified postprocedural states; Z68.34 Body mass index [BMI] 34.0-34.9, adult; Z79.899 Other long term (current) drug therapy; Z90.49 Acquired absence of other specified parts of digestive tract; Z78.1 Physical restraint status
CPT/HCPCS: 31500; 36415; 36569; 36600; 51702; 71045; 71260; 80048; 80053; 80069; 81001; 82330; 82803; 82947; 83605; 83735; 84100; 84478; 84484; 85025; 85379; 86140; 87070; 87077; 87086; 87186; 87205; 93005; 93010; 93306; 93971; 94002; 94003; 94640; 94660; 94668; 94762; 96365; 96366; 96375; 99285-25; A9270; C1751; C9113; J0290; J0456; J0696; J0744; J1170; J1450; J1650; J1815; J1940; J2060; J2250; J2270; J2543; J2704; J2920; J2930; J3010; J3411; J3475; J3480; J7030; J7042; J7050; J7060; Q9967